=== PATIENT | female | born 1995 | race Caucasian/White ===

== ENCOUNTER 2017-03-19 18:42 | Emergency (ER) | payer BC, SELFPAY ==
[2017-03-19 19:06] VITALS: BP 139/94; PULSE 96; RESP 16; TEMP 36.8; O2SAT 96; BMI 21.2
[2017-03-19 19:38] LABS: Microscopic, Urine URINE MICROSCOPIC (MICROSCOPIC)
[2017-03-19 19:41] LABS: Basophils # 0.1 K/mm3 (0-0.2); Eosinophils # 0.5 K/mm3 (0.0-0.4); Eosinophils % 6.5 % (0.1-12.0); Lymphocytes # 2.7 K/mm3 (0.7-4.5); Lymphocytes % 34.9 K/mm3 (10-50); Mean Corpuscular HGB Conc 31.8 g/dL (31.8-35.4); Mean Corpuscular Hemoglobin 27.3 pg (27.0-31.2); Mean Corpuscular Volume 85.7 fl (81-99); Mean Platelet Volume 7.9 fl (7.4-10.4); Monocytes # 0.7 K/mm3 (0.1-1.0); Monocytes % 8.5 % (1.7-9.3); Neutrophils # 3.8 K/mm3 (1.8-7.8); Neutrophils % 49.1 % (37.0-80.0); Platelet Count 299 K/mm3 (142-424); Red Blood Count 5.13 M/mm3 (4.20-5.40); Red Cell Distribution Width 12.4 % (11.5-17.5); White Blood Count 7.8 K/mm3 (4.8-10.8)
[2017-03-19 19:47] LABS: Appearance,Urine SL CLOUDY (Clear); Bilirubin,Urine Negative (Negative); Blood, Urine Negative (Negative); Color,Urine YELLOW (Yellow); Glucose,Urine (UA) Negative (Negative); Ketones,Urine Negative (Negative); Leukocyte Esterase,Urine Negative (Negative); Nitrate,Urine Negative (Negative); Protein,Urine Negative (Negative); Urobilinogen,Urine 0.2 EU/dl (0.2)
--- NOTE | 2017-03-19 19:48 | CT_ITS ---
CT abdomen pelvis wo con CLINICAL INDICATION: Lower abdominal pain ITS.REASON: ABD PAIN ORDERING PHYSICIAN: Lilly Renee MD PATIENT AGE: 21 years COMPARISON: None TECHNIQUE: Axial images obtained with sagittal and coronal reformats. PROCEDURE: Oral Contrast: None IV Contrast: None . FINDINGS: Solid organs and bowel evaluation limited without IV and oral contrast. No acute finding in the lower chest. The liver, spleen, adrenal glands, pancreas, and kidneys is unremarkable unenhanced CT appearance. No intestinal obstruction or free air. The appendix is not well delineated however, no secondary signs of appendicitis. There is nonrotation of the bowel with the small bowel located mainly in the right side of the abdomen in the large bowel on the left. What appears to represent the appendix is located in the left upper quadrant mildly prominent but without stranding of the periappendiceal fat. Gas is present within the appendix as expected. There is a small amount fluid in the cul-de-sac nonspecific. No focal inflammatory change evident in the pelvis. No acute bony anomalies. IMPRESSION: 1. No acute finding. 2. Nonrotation of the bowel as described above. 3. There are multiple unopacified bowel loops present within the abdomen/pelvis which could obscure or mimic pathology. If symptoms persists, consider repeating exam with IV and oral contrast administration
[2017-03-19 19:50] LABS: Urine Pregnancy, HCG Qual. Negative (Negative)
[2017-03-19 19:52] LABS: Blood Urea Nitrogen 6 mg/dL (7-18); Creatinine Clearance Estimated 94 mg/ml (0-300); Creatinine,Serum 0.79 mg/dL (0.55-1.02); Estimated Glomerular Filt Rate > 60 ml/min (>60); GFR (African American) > 60 ML/MIN (>60)
[2017-03-19 20:02] LABS: RBC,Urine Occasional #/hpf (0-3); WBC,Urine 20-50 #/hpf (0-3)
[2017-03-19 20:03] LABS: Bacteria,Urine 1+ /lpf
[2017-03-19 20:33] LABS: Alanine Aminotransferase 24 U/L (12-78); Albumin Level 4.2 gm/dL (3.4-5.0); Albumin/Globulin Ratio 1.1 (1.1-1.8); Alkaline Phosphatase 85 U/L (46-116); Amylase 76 U/L (25-125); Anion Gap 11.1 mEq/L (5-15); Aspartate Amino Transferase 22 U/L (15-37); Bilirubin,Total 0.2 mg/dL (0.2-1.0); Blood Urea Nitrogen 7 mg/dL (7-18); Calcium 9.3 mg/dL (8.5-10.1); Carbon Dioxide 30 mmol/L (21.0-32.0); Chloride 103 mmol/L (98-107); Creatinine Clearance Estimated 91 mg/ml (0-300); Creatinine,Serum 0.81 mg/dL (0.55-1.02); Estimated Glomerular Filt Rate > 60 ml/min (>60); GFR (African American) > 60 ML/MIN (>60); Globulin 3.9 gm/dl (1.3-3.2); Glucose 102 mg/dL (74-106); Lipase 157 u/L (73-393); Potassium 4.1 mmoL/L (3.5-5.1); Sodium 140 mmol/L (136-145); Total Protein,Serum 8.1 gm/dL (6.4-8.2)
--- NOTE | 2017-03-19 20:59 | HMH.EDUROGF ---
ED Disposition Clinical Impression: Abdominal pain Qualifiers: Abdominal location: unspecified location Qualified Code(s): R10.9 - Unspecified abdominal pain UTI (urinary tract infection) Qualifiers: Urinary tract infection type: acute cystitis Hematuria presence: without hematuria Qualified Code(s): N30.00 - Acute cystitis without hematuria Disposition: Home, Self-Care Condition on Discharge: Good Instructions: DI for Acute Abdomen Additional Instructions: call pcp for culture results and follow up Prescriptions: Sulfamethoxazole/Trimethoprim [Bactrim DS tablet] 1 each PO BID #10 tab Referrals: Provider,Referral, [Primary Care Provider] - - Critical Care Critical Care Time: No Attestation: On 03/19/17, the high probability of a clinically significant, sudden or life threatening deterioration of the following system(s) required my full and direct attention, intervention and personal management. The time I documented below is in addition to time spent performing reported procedures but includes the following listed in this critical care notation. Medical Decision Making - Medical Records Medical records reviewed: Yes: I reviewed the patient's medical records. Vital Signs: 03/19/17 19:06 Temperature 98.3 F Temperature Source Oral Pulse Rate [Right Brachial] 96 H Respiratory Rate 16 Blood Pressure [Right Arm] 139/94 Blood Pressure Mean [Right Arm] 109 Blood Pressure Source [Right Arm] Automatic Cuff Blood Pressure Position [Right Arm] Sitting 02 Sat by Pulse Oximetry 96 Oxygen Delivery Method Room Air - Lab Data Lab results reviewed: Yes: I reviewed the patient's lab results. Lab Results 03/19/17 19:30: WBC 7.8, RBC 5.13, Hgb 14.0, Hct 44.0, MCV 85.7, MCH 27.3, MCHC 31.8, RDW 12.4, Plt Count 299, MPV 7.9, Neut % (Auto) 49.1, Lymph % (Auto) 34.9, [place] % (Auto) 8.5, Eos % (Auto) 6.5, Baso % (Auto) 1.0, Neut # (Auto) 3.8, Lymph # (Auto) 2.7, [place] # (Auto) 0.7, Eos # (Auto) 0.5 H, Baso # (Auto) 0.1 03/19/17 19:30: Sodium 140, Potassium 4.1, Chloride 103, Carbon Dioxide 30, Anion Gap 11.1, BUN 7, Creatinine 0.81, Estimated Creat Clear 91, Estimated GFR > 60, Est GFR ( Amer) > 60, Glucose 102, Calcium 9.3, Total Bilirubin 0.2, AST 22, ALT 24, Alkaline Phosphatase 85, Total Protein 8.1, Albumin 4.2, Globulin 3.9 H, Albumin/Globulin Ratio 1.1, Amylase 76, Lipase 157 03/19/17 19:30: BUN 6 L, Creatinine 0.79, Estimated Creat Clear 94, Estimated GFR > 60, Est GFR ( Amer) > 60 03/19/17 19:34: Urine Color Yellow, Urine Appearance Sl cloudy, Urine pH 7.0, Ur Specific [place] 1.020, Urine Protein Negative, Urine Glucose (UA) Negative, Urine Ketones Negative, Urine Blood Negative, Urine Nitrate Negative, Urine Bilirubin Negative, Urine Urobilinogen 0.2, Ur Leukocyte Esterase Negative, Urine RBC Occasional, Urine WBC 20-50, Ur Squamous Epith Cells 10-20, Urine Bacteria 1+ 03/19/17 19:34: Urine HCG, Qual Negative Result diagrams: 03/19/17 19:30 03/19/17 19:30 Orders (Tests/Meds): ED MEDICATIONS Generic Name Dose Route Start Last Admin Trade Name Freq PRN Reason Stop Dose Admin Sodium Chloride 10 ml 03/19/17 19:36 Saline Flush 10ml Syringe IV 04/18/17 19:35 NEEDED PRN Maintain IV Site ORDERS Category Date Time Status CT abdomen pelvis wo con Routine Cat Scan 03/19/17 19:[address] abdomen/pelvis request [CT Request abd/pelvis] Exams 03/19/17 19:13 Ordered Stat Urine Culture Stat Micro 03/19/17 19:34 Received - CT Data CT Scan: Abdomen, Pelvis Time Received: 21:[address] Reviewed: Yes: I have viewed the radiologist's interpretation Preliminary Findings: Normal/NAD - Francisco Inquiry Pt receiving controlled substance: No Female Urogenital HPI - General Chief complaint: Abdominal Pain Stated complaint: abd pain Time Seen by Provider: 03/19/17 20:15 Mode of Arrival: Ambulatory Source of Information: Patient, Significant Other, Medical Hardy
== END 2017-03-19 21:41 | disposition home or self-care (01) ==
PROVIDERS: Emergency Provider Emergency Medicine
DX: N30.00 Acute cystitis without hematuria (principal); J45.909 Unspecified asthma, uncomplicated
CPT/HCPCS: 74176; 80053; 81001; 81025; 82150; 82565; 83690; 84520; 85025; 87086; 99283

== ENCOUNTER → 2020-10-01 18:05 | Outpatient (CLI) | payer MEDICAID, SELFPAY ==
--- NOTE | 2020-10-01 18:25 | XR_ITS ---
PROCEDURE INFORMATION: Exam: XR Abdomen Exam date and time: 10/01/2020 6:25 PM Age: 25 years old Clinical indication: Patient HX: Constipation. Sitz marker study day #1; Additional info: Constipation , sitz marker study TECHNIQUE: Imaging protocol: XR of the abdomen. Views: Frontal supine view of the abdomen. 1 View. COMPARISON: ABDPELWO CT abdomen pelvis wo con 03/19/2017 7:56 PM FINDINGS: Gastrointestinal tract: A large amount of stool is noted throughout the colon. The bowel gas pattern is nonobstructive and nonspecific. Intraperitoneal space: Sitz markers overlie the left upper quadrant, left lower quadrant and mid abdomen. Bones/joints: Unremarkable. IMPRESSION: 1. A large amount of stool is noted throughout the colon. 2. Sitz markers overlie the left upper quadrant, left lower quadrant and mid abdomen. 3. The bowel gas pattern is nonobstructive and nonspecific.
== END ==
PROVIDERS: PCP Pediatrics; Visit Provider Surgery
DX: G89.29 Other chronic pain (principal); K59.09 Other constipation; Q43.3 Congenital malformations of intestinal fixation
CPT/HCPCS: 74018

== ENCOUNTER → 2020-10-05 17:12 | Outpatient (CLI) | payer MEDICAID, SELFPAY ==
--- NOTE | 2020-10-05 17:22 | XR_ITS ---
PROCEDURE INFORMATION: Exam: XR Abdomen Exam date and time: 10/05/2020 5:22 PM Age: 25 years old Clinical indication: Screening exam; Other: Sitz marker test; Additional info: Chronic abdominal pain. Constipation, sitz marker study day 5 TECHNIQUE: Imaging protocol: XR of the abdomen. Views: Frontal supine view of the abdomen. 1 View. COMPARISON: CR XR KUB 10/01/2020 6:29 PM FINDINGS: Gastrointestinal tract: A large amount of stool is noted throughout the transverse descending and rectosigmoid colon. The bowel gas pattern is nonobstructive and nonspecific. Bones/joints: Unremarkable. Other findings: No evidence of Sitz markers. IMPRESSION: 1. No evidence of Sitz markers. 2. A large amount of stool is noted throughout the transverse descending and rectosigmoid colon. 3. The bowel gas pattern is nonobstructive and nonspecific.
== END ==
PROVIDERS: PCP Pediatrics; Visit Provider Surgery
DX: R10.9 Unspecified abdominal pain (principal); G89.29 Other chronic pain; K59.09 Other constipation; Q43.3 Congenital malformations of intestinal fixation
CPT/HCPCS: 74018

== ENCOUNTER → 2021-03-28 15:33 | Outpatient (CLI) | payer MEDICAID, SELFPAY | PROVIDERS: Visit Provider Nurse Practitioner | DX: Z20.822 Contact with and (suspected) exposure to COVID-19 (principal) | CPT/HCPCS: C9803; U0003; U0005 ==

== ENCOUNTER 2021-04-05 11:39 | Emergency (ER) | payer MEDICAID, SELFPAY ==
[2021-04-05 12:30] VITALS: BP 124/89; PULSE 87; RESP 18; TEMP 36.9; O2SAT 99; BMI 25.6
--- NOTE | 2021-04-05 13:16 | HMH.EDUTC ---
[facility] [place] Disposition Clinical Impression: UTI (urinary tract infection) Qualifiers: Urinary tract infection type: site unspecified Hematuria presence: with hematuria Qualified Code(s): N39.0 - Urinary tract infection, site not specified Disposition: Home, Self-Care Condition on Discharge: Good Instructions: Trimethoprim/Sulfamethoxazole (Alternative Therapy), Urinary Tract Infection, DI for Urinary Tract Infection (UTI), Phenazopyridine Additional Instructions: *Increase fluids. Water not Soda or Tea *Start antibiotic immediately and be sure to take as ordered for the FULL length of time although you should start to see improvement over the next 48 hours *Pyridium as needed Remember this medication will turn your urine [place]. This is normal but it will stain what ever it gets on *You should not use Pyridium for more than 48 hours. If so , follow up with your primary physician to review urine culture and ensure that antibiotic is adequate for infection *Be SURE to follow up anytime for new or worsening symptoms with your family doctor. AND in 48 hours for urine culture results with your family doctor, if you do not have a doctor then you may call back to the [facility] for urine culture results and further treatment. We do recommend that you choose and establish care with a Primary Care Physician. AND follow up with them in 10-14 days to repeat UA to ensure infection is resolved and blood no longer present *Be sure to let your PCP know that we sent urine cultures from the [facility] so they can follow up to ensure that you area the on the correct antibiotic Call your doctor office and make appointment for 48 hours (2 days from today) to follow up and get the results of your urine culture and further treatment Prescriptions: Sulfamethoxazole/Trimethoprim [Bactrim DS tablet] 1 each PO BID 10 Days #20 tab Transmission Status: Pending to [id number] Phenazopyridine HCl [Pyridium 200mg Tablet] 200 pow PO TID #6 tab Transmission Status: Pending to [facility] Referrals: Stiven Calderon JR, MD [Primary Care Provider] - Forms: Work/School Release Time of Disposition: 13:23 Medical Decision Making - Francisco Inquiry Pt receiving controlled substance: No Francisco was queried for this patient: No Vital Signs: 04/05/21 12:30 Temperature 98.5 F Temperature Source Oral Pulse Rate [Right Brachial] 87 Respiratory Rate 18 Blood Pressure [Right Arm] 124/89 Blood Pressure Mean [Right Arm] 100 Blood Pressure Source [Right Arm] Automatic Cuff Blood Pressure Position [Right Arm] Sitting 02 Sat by Pulse Oximetry 99 Oxygen Delivery Method Room Air - Lab Data Lab results reviewed: Yes: I reviewed the patient's lab results. Medical Decision Narrative: denies states that she has the [employer] in [facility] [place] HPI - General Stated complaint: possible uti Time Seen by Provider: 04/05/21 13:16 Mode of Arrival: Ambulatory Source of Information: Patient Limitations: No Limitations Description of Symptoms (Recalled from Triage Doc. by RN): PATIENT C/O BURNING AND URGENCY WITH URINATION X 3 DAYS HEENT Symptoms (Recalled from RN notes): No Resp Symptoms (Recalled from RN notes): No Skin Symptoms (Recalled from RN notes): No MS Symptoms (Recalled from RN notes): No Functional Status (Recalled from RN notes): WNL - History of Present Illness Provider Complaint: Patient states that she has been having burning with urination for the last 3 days with feeling of urgency and frequency States that she feels like she may have a UTI so she came in to get checked - Related Data Previous Rx's Medication Instructions Recorded Phenazopyridine HCl [Pyridium 200 pow PO TID #6 tab 04/05/21 200mg Tablet] Sulfamethoxazole/Trimethoprim 1 each PO BID 10 Days #20 tab 04/05/21 [Bactrim DS tablet] Allergies Allergy/AdvReac Type Severity Reaction Status Date / Time No Known Allergies Allergy Verified 10/25/20 16:21 - Worker's
[2021-04-05 13:25] VITALS: BP 124/89; PULSE 87; RESP 18; TEMP 36.9; O2SAT 99
[2021-04-05 13:29] LABS: Apearance,Urine Clear (Clear); Bilirubin,Urine Negative (Negative); Blood, Urine 2+ (Negative); Color,Urine Orange (Yellow); Glucose,Urine (UA) Negative (Negative); Ketones,Urine Negative (Negative); Protein,Urine Negative (Negative); UTC Leukocyte Esterase,Urine Negative (Negative); UTC Nitrate,Urine Positive (Negative); Urobilinogen,Urine 1 EU/dl (0.2)
== END 2021-04-05 13:30 | disposition home or self-care (01) ==
PROVIDERS: Emergency Provider Nurse Practitioner; PCP Pediatrics
DX: N39.0 Urinary tract infection, site not specified (principal); J45.909 Unspecified asthma, uncomplicated
CPT/HCPCS: 81003; 87086; 87088; 87186; 99202; G0463

== ENCOUNTER 2021-04-22 12:07 | Emergency (ER) | payer MEDICAID, SELFPAY ==
[2021-04-22 14:02] VITALS: BP 143/93; PULSE 84; RESP 16; TEMP 36.9; O2SAT 100; BMI 24.7
--- NOTE | 2021-04-22 14:51 | HMH.EDUTC ---
[facility] [place] Disposition Clinical Impression: Viral syndrome, Bronchitis, Exposure to COVID-19 virus Pharyngitis Qualifiers: Pharyngitis/tonsillitis etiology: unspecified etiology Qualified Code(s): J02.9 - Acute pharyngitis, unspecified Disposition: Home, Self-Care Condition on Discharge: Good Instructions: DI for Pharyngitis/Tonsillopharyngitis -- Adult, DI for COVID-19 (Suspected or Confirmed ), Preventing the Spread of Coronavirus Discharge Instructions Additional Instructions: Drink plenty of fluids. Take tylenol or ibuprofen for pain or fever. Take the medications as directed. Follow up with your regular doctor. GO TO THE ER FOR ANY WORSENING SYMPTOMS Quarantine until you know the results of your covid-19 test. Notify your school or workplace of your results and follow their instructions regarding return to work/school. The cough medication (promethazine dm) will make you drowsy, so don't drive or operate heavy machinery after taking it. Prescriptions: Promethazine/Dextromethorphan [Promethazine-Dm Syrup] 5 ml PO Q6HP PRN #240 ml PRN Reason: Cough Transmission Status: Received by [facility] methylPREDNISolone [Medrol] 4 mg PO DIRECTED 6 Days #21 packet Transmission Status: Received by [facility] Azithromycin [Z-Elgin 250mg Tab*] 250 mg PO UD DOSE PK #6 tab Transmission Status: Received by [facility] Referrals: Stiven Calderon JR, MD [Primary Care Provider] - Forms: Work/School Release Time of Disposition: 15:14 Medical Decision Making - Medical Records Medical records reviewed: No: I reviewed the patient's medical records. - Francisco Inquiry Pt receiving controlled substance: No Vital Signs: 04/22/21 14:02 Temperature 98.4 F Temperature Source Oral Pulse Rate [Right Brachial] 84 Respiratory Rate 16 Blood Pressure [Right Arm] 143/93 H Blood Pressure Mean [Right Arm] 109 Blood Pressure Source [Right Arm] Automatic Cuff 02 Sat by Pulse Oximetry 100 Oxygen Delivery Method Room Air Orders (Tests/Meds): ORDERS Category Date Time Status Covid-19 Nasal PCR ([facility]) Routine Lab 04/22/21 14:03 Received Rapid Strep Scrn Group A [Strep Scrn Group A (Rapid)] Lab 04/22/21 15:09 Received Stat [facility] [place] HPI - General Stated complaint: stomach pain,nausea Time Seen by Provider: 04/22/21 14:51 Mode of Arrival: Ambulatory Source of Information: Patient Limitations: No Limitations Description of Symptoms (Recalled from Triage Doc. by RN): PT REPORTS LEFT SIDED ABDOMINAL PAIN, FEVER, BODY ACHES, CONTRERAS AND COUGH THAT STARTED YESTERDAY MORNING. HEENT Symptoms (Recalled from RN notes): No Resp Symptoms (Recalled from RN notes): Yes Skin Symptoms (Recalled from RN notes): No MS Symptoms (Recalled from RN notes): No Functional Status (Recalled from RN notes): N/A - History of Present Illness Provider Complaint: She states that for the past 2 days, she has had body aches, n/v/d, epigastric tenderness, low grade fever, chills and a cough. Her throat is also sore. She denies any known exposure to covid-19. But, she works at [employer] around lots of other people. She has been vaccinated against covid-19. - Related Data Previous Rx's Medication Instructions Recorded Phenazopyridine HCl [Pyridium 200 pow PO TID #6 tab 04/05/21 200mg Tablet] Sulfamethoxazole/Trimethoprim 1 each PO BID 10 Days #20 tab 04/05/21 [Bactrim DS tablet] Azithromycin [Z-Elgin 250mg Tab*] 250 mg PO UD DOSE PK #6 tab 04/22/21 Promethazine/Dextromethorphan 5 ml PO Q6HP PRN #240 ml 04/22/21 [Promethazine-Dm Syrup] methylPREDNISolone [Medrol] 4 mg PO DIRECTED 6 Days #21 04/22/21 packet Allergies Allergy/AdvReac Type Severity Reaction Status Date / Time No Known Allergies Allergy Verified 10/25/20 16:21 - Worker's Comp Is this a Worker's Comp case?: No [facility] History - Hepatitis A Screen Drug use history?: No High risk sexual behaviors?: No History of sexual
[2021-04-22 15:32] VITALS: BP 143/93; PULSE 84; RESP 16; TEMP 36.9; O2SAT 100
[2021-04-22 15:45] LABS: Strep Scrn Group A (Rapid) Negative (Negative)
== END 2021-04-22 15:37 | disposition home or self-care (01) ==
PROVIDERS: Emergency Provider Nurse Practitioner Family; PCP Pediatrics
DX: B34.9 Viral infection, unspecified (principal); Z20.822 Contact with and (suspected) exposure to COVID-19
CPT/HCPCS: 87430; 99202; C9803; G0463; U0003; U0005

== ENCOUNTER 2021-05-24 16:09 | Emergency (ER) | payer MEDICAID, SELFPAY ==
[2021-05-24 16:30] VITALS: BP 138/94; PULSE 102; RESP 20; TEMP 36.7; O2SAT 97; BMI 24.7
--- NOTE | 2021-05-24 16:30 | XR_ITS ---
PROCEDURE INFORMATION: Exam: XR Left Ankle Exam date and time: 05/24/2021 4:30 PM Age: 26 years old Clinical indication: Pain; Ankle; Left TECHNIQUE: Imaging protocol: XR Left ankle. Views: 3 or more views. COMPARISON: CR XR FOOT LT MIN 3V 05/24/2021 4:33 PM FINDINGS: Bones/joints: No acute fracture or dislocation. Ankle mortise is intact. Normal bone mineralization. Soft tissues: Normal. IMPRESSION: No acute findings.
--- NOTE | 2021-05-24 16:30 | XR_ITS ---
PROCEDURE INFORMATION: Exam: XR Left Foot Exam date and time: 05/24/2021 4:30 PM Age: 26 years old Clinical indication: Pain; Foot; Left TECHNIQUE: Imaging protocol: XR Left foot. Views: 3 or more views. COMPARISON: No relevant prior studies available. FINDINGS: Bones/joints: No acute fracture or dislocation. Joint spaces are preserved. Normal bone mineralization. Soft tissues: Normal. IMPRESSION: No acute findings.
[2021-05-24 17:06] VITALS: BP 138/94; PULSE 102; RESP 20; TEMP 36.7; O2SAT 97
--- NOTE | 2021-05-24 17:17 | HMH.EDUTC ---
[facility] [place] Disposition Clinical Impression: Ankle pain Qualifiers: Chronicity: unspecified Laterality: unspecified laterality Qualified Code(s): M25.579 - Pain in unspecified ankle and joints of unspecified foot Disposition: Home, Self-Care Condition on Discharge: Good Instructions: How To Perform RICE (Rest, Ice, Compress, Elevate), How to Apply an Klever Wrap Additional Instructions: *weight bearing as tolerated *RICE, Rest the extremity, Ice 15-20 minutes 3-4 times daily, Compress- wear the klever wrap as discussed as much as possible to help reduce swelling and pain, Elevate the extremity when at rest *Klever wrap is for support and help control swelling, use it except in the shower. Be sure that is not to tight but not to loose either *Elevate when resting *Ibuprofen as directed on package every 6-8 hours as needed for pain an inflammation. If need something more can take Tylenol in between doses of Ibuprofen to help Immediately follow up with your family doctor for new or worsening of symptoms, or no noticeable improvement over the next 3-5 days Referrals: Stiven Calderon JR, MD [Primary Care Provider] - As needed Time of Disposition: 17:25 Medical Decision Making - Frnacisco Inquiry Pt receiving controlled substance: No Francisco was queried for this patient: No Vital Signs: 05/24/21 16:30 05/24/21 17:06 Temperature 98.1 F 98.1 F Temperature Source Oral Pulse Rate 102 H Pulse Rate [Right Brachial] 102 H Respiratory Rate 20 20 Blood Pressure 138/94 H Blood Pressure [Right Arm] 138/94 H Blood Pressure Mean [Right Arm] 108 Blood Pressure Source [Right Arm] Automatic Cuff Blood Pressure Position [Right Arm] Sitting 02 Sat by Pulse Oximetry 97 Oxygen Delivery Method Room Air - Radiology Data #1 Image(s): Foot/Toes (left) Image Reviewed: Yes I have reviewed radiologist's interpretation IMPRESSION: No acute findings. #2 Image(s): Ankle Image Reviewed: Yes I have reviewed radiologist's interpretation IMPRESSION: No acute findings. [facility] [place] HPI - General Stated complaint: lt foot injury 05/22/21 Time Seen by Provider: 05/24/21 17:17 Mode of Arrival: Ambulatory Source of Information: Patient Limitations: No Limitations Description of Symptoms (Recalled from Triage Doc. by RN): PATIENT C/O LEFT FOOT AND ANKLE PAIN THAT STARTED 2 DAYS AGO. NO KNOWN INJURY HEENT Symptoms (Recalled from RN notes): No Resp Symptoms (Recalled from RN notes): No Skin Symptoms (Recalled from RN notes): No MS Symptoms (Recalled from RN notes): Yes Functional Status (Recalled from RN notes): WNL - History of Present Illness Provider Complaint: Patient states that she thinks her shoes is making her foot hurt but she was worried that she may have done something too it and wanted to get it xrayed States that she has been having pain in the top of her foot that shoots up to her left ankle when she walks Denies known injury - Related Data Allergies Allergy/AdvReac Type Severity Reaction Status Date / Time No Known Allergies Allergy Verified 10/25/20 16:21 - Worker's Comp Is this a Worker's Comp case?: No [facility] History - Hepatitis A Screen Drug use history?: No High risk sexual behaviors?: No History of sexually transmitted infection?: No Currently employed?: No Childcare worker?: No Do you have indoor plumbing?: Yes Do you have electricity?: Yes Attestation statement:: This patient has been screened for Hepatitis A risk factors. I have reviewed the patient's past medical history: Yes Medical History: Reports:: Asthma Denies:: Cancer, Diabetes Mellitus Type 1, Diabetes Mellitus Type 2, MRSA Laterality Cases: Bilateral: Tonsillectomy, Other Amputation: No Fractures: No Comment: Gastroschesis, wisdom teeth - Social History Smoking Status: Never smoker Alcohol Intake: never Alcohol Intake Frequency:: holidays/special occasions only Substance Use Type: denies use Occupational Status: employed Family H
== END 2021-05-24 18:01 | disposition home or self-care (01) ==
PROVIDERS: Emergency Provider Nurse Practitioner; PCP Pediatrics
DX: M25.572 Pain in left ankle and joints of left foot (principal)
CPT/HCPCS: 73610; 73630; 99212; G0463

== ENCOUNTER 2021-08-04 21:10 | Emergency (ER) | payer MEDICAID, SELFPAY ==
[2021-08-04 21:25] VITALS: BP 152/98; PULSE 101; RESP 18; TEMP 36.9; O2SAT 99; BMI 26.5
--- NOTE | 2021-08-04 21:42 | XR_ITS ---
PROCEDURE INFORMATION: Exam: XR Left Knee Exam date and time: 08/04/2021 9:48 PM Age: 26 years old Clinical indication: Injury or trauma; Fall; Blunt trauma; Knee; Left; Additional info: Knee pain TECHNIQUE: Imaging protocol: XR Left knee. Views: 3 views. COMPARISON: CR XR ANKLE LT MIN 3V 05/24/2021 4:34 PM FINDINGS: Bones/joints: No evidence of acute fracture or dislocation. No erosive disease. No significant degenerative change. No joint effusion. Soft tissues: Normal. IMPRESSION: Normal knee.
--- NOTE | 2021-08-04 21:42 | XR_ITS ---
PROCEDURE INFORMATION: Exam: XR Left Tibia and Fibula Exam date and time: 08/04/2021 9:49 PM Age: 26 years old Clinical indication: Injury or trauma; Fall; Blunt trauma; Lower leg; Left; Additional info: Knee pain TECHNIQUE: Imaging protocol: XR Left tibia and fibula. Views: 2 views. COMPARISON: CR XR ANKLE LT MIN 3V 05/24/2021 4:34 PM FINDINGS: Bones/joints: No evidence of acute fracture or dislocation. No erosive disease. No significant degenerative change. Soft tissues: Normal. IMPRESSION: No acute abnormality.
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
[2021-08-04 23:03] VITALS: BP 152/98; PULSE 101; RESP 18; TEMP 36.9
== END 2021-08-04 23:07 | disposition home or self-care (01) ==
PROVIDERS: Emergency Provider Emergency Medicine; PCP Pediatrics
DX: S83.92XA Sprain of unspecified site of left knee, initial encounter (principal); V28.2XXA Unspecified motorcycle rider injured in noncollision transport accident in nontraffic accident, initial encounter; Y92.096 Garden or yard of other non-institutional residence as the place of occurrence of the external cause; J45.909 Unspecified asthma, uncomplicated
CPT/HCPCS: 73562; 73590; 99283

== ENCOUNTER 2021-08-30 16:47 | Emergency (ER) | payer MEDICAID, SELFPAY ==
[2021-08-30 17:05] VITALS: BP 142/101; PULSE 110; RESP 17; TEMP 36.7; O2SAT 99; BMI 25.6
--- NOTE | 2021-08-30 17:18 | HMH.EDUTC ---
[facility] [place] Disposition Clinical Impression: Viral syndrome, Exposure to COVID-19 virus Disposition: Home, Self-Care Condition on Discharge: Good Instructions: DI for COVID-19 (Suspected or Confirmed ), Preventing the Spread of Coronavirus Discharge Instructions Additional Instructions: Drink plenty of fluids. Take ibuprofen for pain or fever. Take the medications as directed. Follow up with your regular doctor. GO TO THE ER FOR ANY WORSENING SYMPTOMS Quarantine until you know the results of your covid-19 test. Notify your school or workplace of your results and follow their instructions regarding return to work/school. The cough medication (promethazine dm) will make you drowsy, so don't drive or operate heavy machinery after taking it. Prescriptions: Ibuprofen [Ibuprofen 600mg Tablet] 600 mg PO Q6HP PRN #30 tab PRN Reason: Mild Pain [id number] Promethazine/Dextromethorphan [Promethazine-Dm Syrup] 5 ml PO Q6HP PRN #240 ml PRN Reason: Cough Transmission Status: Received by [id number] Ondansetron [Zofran 4mg ODT] 4 mg PO Q8HP PRN #20 tab PRN Reason: Nausea Transmission Status: Received by [id number] Referrals: Stiven Calderon JR, MD [Primary Care Provider] - Forms: Work/School Release Time of Disposition: 17:33 Medical Decision Making - Medical Records Medical records reviewed: No: I reviewed the patient's medical records. - Francisco Inquiry Pt receiving controlled substance: No Vital Signs: 08/30/21 17:05 08/30/21 17:40 Temperature 98.1 F 98.0 F Temperature Source Oral Pulse Rate 92 H Pulse Rate [Left Radial] 110 H Respiratory Rate 17 17 Blood Pressure 130/90 Blood Pressure [Right Arm] 142/101 H Blood Pressure Mean [Right Arm] 114 02 Sat by Pulse Oximetry 99 - Lab Data Lab results reviewed: Yes: I reviewed the patient's lab results. [facility] [place] HPI - General Stated complaint: allergies covid symptons Time Seen by Provider: 08/30/21 17:18 Description of Symptoms (Recalled from Triage Doc. by RN): patient comes in today with complaints of headache, bodyaches, patients sister has covid. HEENT Symptoms (Recalled from RN notes): Yes Resp Symptoms (Recalled from RN notes): Yes Skin Symptoms (Recalled from RN notes): No MS Symptoms (Recalled from RN notes): No Functional Status (Recalled from RN notes): wnl - History of Present Illness Provider Complaint: She states that since yesterday she has had body aches, chilling, fever up to 100.5, dry nonproductive cough, nausea, and she has felt bad. Her sister currently has covid-19. - Related Data Previous Rx's Medication Instructions Recorded Ibuprofen [Ibuprofen 600mg 600 mg PO Q6HP PRN #30 tab 08/30/21 Tablet] Ondansetron [Zofran 4mg ODT] 4 mg PO Q8HP PRN #20 tab 08/30/21 Promethazine/Dextromethorphan 5 ml PO Q6HP PRN #240 ml 08/30/21 [Promethazine-Dm Syrup] Allergies Allergy/AdvReac Type Severity Reaction Status Date / Time No Known Allergies Allergy Verified 10/25/20 16:21 - Worker's Comp Is this a Worker's Comp case?: No [facility] History - Hepatitis A Screen Attestation statement:: This patient has been screened for Hepatitis A risk factors. I have reviewed the patient's past medical history: Yes Medical History: Reports:: Asthma Denies:: Cancer, Diabetes Mellitus Type 1, Diabetes Mellitus Type 2, MRSA Laterality Cases: Bilateral: Tonsillectomy, Other Amputation: No Fractures: No Comment: Gastroschesis, wisdom teeth - Social History Smoking Status: Never smoker Alcohol Intake: never Alcohol Intake Frequency:: holidays/special occasions only Substance Use Type: denies use Occupational Status: employed Family Hx:: No significant family history ROS Obtained: Yes All systems reviewed & no additional complaints - Constitutional Constitutional: Reports as per HPI - Eyes Eyes: Denies eye discharge - ENT Ear
[2021-08-30 17:40] VITALS: BP 130/90; PULSE 92; RESP 17; TEMP 36.7
== END 2021-08-30 17:41 | disposition home or self-care (01) ==
LOC: ER 16:53 → UTC 16:56
PROVIDERS: Emergency Provider Nurse Practitioner Family; PCP Pediatrics
DX: R51.9 Headache, unspecified (principal); M79.10 Myalgia, unspecified site; R11.0 Nausea; Z20.822 Contact with and (suspected) exposure to COVID-19; J45.909 Unspecified asthma, uncomplicated; Q79.3 Gastroschisis; Z79.1 Long term (current) use of non-steroidal anti-inflammatories (NSAID)
CPT/HCPCS: 99213; C9803; G0463; U0003; U0005

== ENCOUNTER 2021-12-09 15:43 | Emergency (ER) | payer MEDICAID, SELFPAY ==
[2021-12-09 15:50] VITALS: BP 114/87; PULSE 97; RESP 19; TEMP 37; O2SAT 98; BMI 24.0
--- NOTE | 2021-12-09 16:08 | EXP.UTC ---
Discharge Plan Disposition Patient Disposition: Home, Self-Care Condition: Good Prescriptions Prescriptions: New iyxdttgyjmugtot-vyosqyfbl-RL [Bromfed DM] 2-30-10 mg/5 mL syrup 10 ml PO Q4H PRN (Reason: Cough) Qty: 240 0RF fluticasone propionate [Flonase Allergy Relief] 50 mcg/actuation spray,suspension 1 spray intranasal DAILY Qty: 16 0RF Rx Instructions: administer into each nostril Referrals Follow up/Referrals: Stiven Calderon JR, MD [Primary Care Provider] - See instructions Activity Restrictions/Add. Instructions Additional Instructions/Restrictions: *Monitor Temp, Over the counter Motrin or Tylenol as directed/as needed Tylenol every 4 hours and Motrin every 6 hours (as long as your family doctor has told you that you can take it) for fever or pain. and straight to ER if unable to lower temp less than 101.0 after medication given *Warm salt water gargles may help to soothe the throat *Throat Lozenges? *Warm fluids like tea with honey may help to soothe the throat? *Sleep elevated *Humidifier/Vaporizer *Flonase 2 sprays in each nostril daily but be aware that it may take 2-3 days before you notice improvement *Bromfed may cause drowsiness. Know how it effects you (your child) before driving, caring for small child, or sending your child to school. Not other antihistamines/allergy medications while taking bromfed Your throat swab was sent for culture. Those results are typically sent to your primary care. Be sure to follow up in 2-3 days with your family doctor/primary care physician if no improvement so they can review those result and treat if necessary. If you don?t have a primary care doctor, I recommend you get one but in the mean time, you will have to return to a walk in clinic Follow up IMMEDIATELY for new or worsening symptoms or no Noticeable improvement over the next 48-72 hours. 911 for difficulty breathing or swallowing You were tested for today for COVID19 your test result should be back in the next 24-48 hours, you may check your results on the [facility] My Health Portal Make sure to take your Vitamins Vit. C Vit D and Zinc if you can take them Clinical Impressions Clinical Impression: Viral upper respiratory tract infection with cough Stand Alone Forms Stand Alone Forms: Work/School Release Instructions Patient Instructions: Cough, DI for Viral Upper Respiratory Infection -- Adult Discharge ED Provider: Susan Samuel [facility] H[place] General Stated complaint: cougfh, sore throat, congestion Mode of Arrival: Ambulatory Source of Information: Patient Limitations: No Limitations Time Seen by Provider: 12/09/21 16:08 Description of Symptoms (Recalled from Triage Doc. by RN): PATIENT C/O SORE THROAT AND COUGH HEENT Symptoms (Recalled from RN notes): Yes Resp Symptoms (Recalled from RN notes): Yes Skin Symptoms (Recalled from RN notes): No MS Symptoms (Recalled from RN notes): No Functional Status (Recalled from RN notes): WNL History of Present Illness Provider Complaint: Patient states that she has been having sore throat, cough and nasal congestion States that in the morning she is able to cough up some mucous but mostly cough dry and scratchy Related Data Previous Rx's Medication Instructions Recorded dixafgowgxamnuj-gxrpuqsrwkesysz-IL 10 ml PO Q4H PRN Cough #240 mL 12/09/21 2 mg-30 mg-10 mg/5 mL oral syrup (Bromfed DM) fluticasone propionate 50 1 spray intranasal DAILY #16 grams 12/09/21 mcg/actuation nasal spray,suspension (Flonase Allergy Relief) Allergies Allergy/AdvReac Type Severity Reaction Status Date / Time No Known Allergies Allergy Verified 10/25/20 16:21 Worker's Comp Is this a Worker's Comp case?: No [facility] Medical History (Updated 12/09/21 @ 16:17 by Susan Samuel APRN) Anxiety Asthma Depression Urinary tract infection Surgical History (Updated 12/09/21 @ 16:06 by Nat Anderson RN) History of tonsillect
[2021-12-09 16:10] LABS: UTC Strep Screen (Rapid) Negative (Negative)
[2021-12-09 16:19] VITALS: BP 114/87; PULSE 97; RESP 19; TEMP 37; O2SAT 98
== END 2021-12-09 16:24 | disposition home or self-care (01) ==
PROVIDERS: Emergency Provider Nurse Practitioner; PCP Pediatrics
DX: J06.9 Acute upper respiratory infection, unspecified (principal); J02.9 Acute pharyngitis, unspecified; R05.9 Cough, unspecified; R09.81 Nasal congestion; J45.909 Unspecified asthma, uncomplicated; F32.A Depression, unspecified; F41.9 Anxiety disorder, unspecified; Z20.822 Contact with and (suspected) exposure to COVID-19; Z79.51 Long term (current) use of inhaled steroids
CPT/HCPCS: 87880; 99213; C9803; G0463; U0003; U0005

== ENCOUNTER 2021-12-14 12:57 | Emergency (ER) | payer MEDICAID, SELFPAY ==
--- NOTE | 2021-12-14 13:13 | HMH.EDURI ---
Discharge Plan Disposition Patient Disposition: Home, Self-Care Condition: Good Prescriptions Prescriptions: New prednisone 20 mg tablet 60 mg PO DAILY Qty: 15 0RF No Action hacporqtjydlzgc-qinhncfup-MY [Bromfed DM] 2-30-10 mg/5 mL syrup 10 ml PO Q4H PRN (Reason: Cough) Qty: 240 0RF fluticasone propionate [Flonase Allergy Relief] 50 mcg/actuation spray,suspension 1 spray intranasal DAILY Qty: 16 0RF Rx Instructions: administer into each nostril Referrals Follow up/Referrals: Stiven Calderon JR, MD [Primary Care Provider] - See instructions Activity Restrictions/Add. Instructions Additional Instructions/Restrictions: Follow-up with your primary care physician in about 3 to 4 days if you do not notice any improvement. Return to the emergency department immediately if you feel worse in any way. Continue taking all medications as prescribed. Clinical Impressions Clinical Impression: Viral upper respiratory tract infection with cough, UTI (urinary tract infection) Instructions Patient Instructions: Cough, DI for Acute Bronchitis Discharge ED Provider: Jorge Esparza URI/Sore Throat HPI General Chief Complaint: Upper Respiratory Infection Stated Complaint: cough Time Seen by Provider: 12/14/21 13:14 Mode of Arrival: Ambulatory Source of Information: Patient History of Present Illness HPI Narrative: The patient presents to the emergency department complaining of a nagging dry cough for the last 2 weeks. She is on Tessalon Perles. No she also had some cough syrup without relief. She denies fevers. She denies shortness of breath. She is not immunized against COVID or influenza. She does not smoke. She states that the cough is triggered by a tickling sensation in her lower neck anteriorly. Related Data Previous Rx's Medication Instructions Recorded mxdsojjkahyfpdp-haxpeawqjfncdlx-HD 10 ml PO Q4H PRN Cough #240 mL 12/09/21 2 mg-30 mg-10 mg/5 mL oral syrup (Bromfed DM) fluticasone propionate 50 1 spray intranasal DAILY #16 grams 12/09/21 mcg/actuation nasal spray,suspension (Flonase Allergy Relief) prednisone 20 mg tablet 60 mg PO DAILY #15 tabs 12/14/21 Allergies Allergy/AdvReac Type Severity Reaction Status Date / Time No Known Allergies Allergy Verified 10/25/20 16:[facility] Medical History Anxiety Asthma Depression Urinary tract infection Surgical History History of tonsillectomy History of wisdom tooth extraction Social History Smoking Status: Never smoker alcohol intake: never substance use type: denies use current occupational status: employed Travel in the last 8 weeks: None ROS Obtained: Yes All systems reviewed & no additional complaints except as documented Physical Exam General General appearance: alert Head Head exam: atraumatic Eye Eye exam: Present normal appearance ENT ENT exam: Present normal exam Neck Neck exam: Present normal inspection and full ROM; Absent tenderness or meningismus Chest Chest inspection: Present normal inspection and symmetric chest wall rise; Absent tenderness Respiratory Respiratory exam: Present normal lung sounds bilaterally; Absent respiratory distress or accessory muscle use Cardiovascular Cardiovascular exam: Present regular rate, normal rhythm and normal heart sounds Abdominal Exam Abdominal exam: Present soft and normal bowel sounds; Absent distention, tenderness, heel tap sign, Canas's sign, Rovsing's sign, tenderness at McBurney's Point or mass Extremities Exam Extremities exam: Present normal inspection and full ROM; Absent edema Back Exam Back exam: Present normal inspection; Absent CVA tenderness (R) or CVA tenderness (L) Neurological Exam Neurological exam: Present alert and oriented X3 Psychiatric Psychiatric exam: Presen
[2021-12-14 13:14] VITALS: BP 138/94; PULSE 89; RESP 17; TEMP 36.7; O2SAT 98; BMI 25.6
[2021-12-14 13:42] VITALS: BP 122/74; PULSE 82; RESP 98; TEMP 36.7; O2SAT 99
== END 2021-12-14 13:44 | disposition home or self-care (01) ==
PROVIDERS: Emergency Provider Emergency Medicine; PCP Pediatrics
DX: J06.9 Acute upper respiratory infection, unspecified (principal); N39.0 Urinary tract infection, site not specified; Z87.440 Personal history of urinary (tract) infections; F41.9 Anxiety disorder, unspecified; J45.909 Unspecified asthma, uncomplicated; F32.A Depression, unspecified
CPT/HCPCS: 99283

== ENCOUNTER 2022-03-19 08:07 | Emergency (ER) | payer MEDICAID, SELFPAY ==
[2022-03-19 08:08] VITALS: BP 140/91; PULSE 93; RESP 19; TEMP 37; O2SAT 98; BMI 26.5
[2022-03-19 08:28] LABS: UTC Strep Screen (Rapid) Negative (Negative)
[2022-03-19 08:29] LABS: UTC Influenza A Antigen Negative (Negative); UTC Influenza B Antigen Negative (Negative)
--- NOTE | 2022-03-19 08:39 | EXP.UTC ---
Discharge Plan Disposition Patient Disposition: Home, Self-Care Condition: Good Prescriptions Prescriptions: New amoxicillin [amoxicillin] 500 mg tablet 500 mg PO TID 10 Days Qty: 30 0RF benzonatate [benzonatate] 100 mg capsule 100 mg PO TIDP PRN (Reason: Cough) Qty: 30 0RF methylprednisolone 4 mg Tablets,Dose Pack 4 mg PO DIRECTED Qty: 21 0RF Referrals Follow up/Referrals: Provider,Referral, MD [Primary Care Provider] - See instructions Activity Restrictions/Add. Instructions Additional Instructions/Restrictions: Drink plenty of fluids. Take tylenol or ibuprofen for pain or fever. Take the medications as directed. Follow up with your regular doctor. GO TO THE ER FOR ANY WORSENING SYMPTOMS Clinical Impressions Clinical Impression: Acute viral syndrome, Pharyngitis Stand Alone Forms Stand Alone Forms: Work/School Release Instructions Patient Instructions: DI for Pharyngitis/Tonsillopharyngitis -- Adult, DI for Viral Syndrome Discharge ED Provider: Elier Kinney [facility] General Stated complaint: sore throat, cough, congestion, body aches Time Seen by Provider: 03/19/22 08:38 History of Present Illness Provider Complaint: She states that for the past 2 days she has had worsening sore throat, chills, cough, and sinus congestion. Related Data Previous Rx's Medication Instructions Recorded amoxicillin 500 mg tablet 500 mg PO TID 10 days #30 tabs 03/19/22 benzonatate 100 mg capsule 100 mg PO TIDP PRN Cough #30 caps 03/19/22 methylprednisolone 4 mg tablets in 4 mg PO DIRECTED #21 tabs 03/19/22 a dose pack Allergies Allergy/AdvReac Type Severity Reaction Status Date / Time No Known Allergies Allergy Verified 03/19/22 08:47 [facility] Disclaimer: The information contained in this section may have been updated after the patient was seen, as this information can be updated by other users. Medical History Anxiety Asthma Depression Urinary tract infection Surgical History History of tonsillectomy History of wisdom tooth extraction Social History Smoking Status: Never smoker alcohol intake: never substance use type: denies use current occupational status: employed Travel in the last 8 weeks: None ROS Obtained: Yes All systems reviewed & no additional complaints except as documented Constitutional Constitutional: Reports chills and Reports fever(s) Eyes Eyes: Denies eye discharge ENT Ears, Nose, Mouth, and Throat: Reports as per HPI Cardiovascular Cardiovascular: Denies chest pain Respiratory Respiratory: Denies chest congestion and Reports cough Gastrointestinal Gastrointestingal: Reports nausea; Denies abdominal pain, constipation, cramping, diarrhea or vomiting Musculoskeletal Musculoskeletal: Denies arthralgias Integumentary/Breasts Skin/Breast: Denies rash Neurologic Neurologic: Denies paresthesias Physical Exam General General appearance: alert and in no apparent distress Head Head exam: atraumatic, normocephalic and normal inspection Eye Eye exam: Present normal appearance, PERRL and EOMI ENT ENT exam: Present mucous membranes moist and normal external ear exam Expanded ENT Exam TM/Canal exam: Bilateral TM: erythema and bulging Nose exam: Absent sinus tenderness Mouth exam: Present normal external inspection; Absent drooling Teeth exam: Present normal inspection Throat exam: Present tonsillar erythema, tonsillomegaly and tonsillar exudate Neck Neck exam: Present normal inspection, full ROM and trachea midline; Absent tenderness, meningismus or lymphadenopathy Chest Chest inspection: Present normal inspection and symmetric chest wall rise; Absent tenderness Respiratory Respiratory exam: Present normal lung sounds bilaterally; Absent respiratory distress, wheezes or stridor
[2022-03-19 09:01] VITALS: BP 140/91; PULSE 93; RESP 19; TEMP 37; O2SAT 98
== END 2022-03-19 09:01 | disposition home or self-care (01) ==
PROVIDERS: Emergency Provider Nurse Practitioner Family
DX: J02.9 Acute pharyngitis, unspecified (principal); B34.9 Viral infection, unspecified
CPT/HCPCS: 87804; 87880; 99212; 99213; G0463

== ENCOUNTER → 2022-05-05 15:17 | Outpatient (CLI) | payer BC, MEDICAID, SELFPAY ==
[2022-05-05 16:37] LABS: Alanine Aminotransferase 19 U/L (12-78); Albumin Level 4.5 g/dl (3.5-5.0); Albumin/Globulin Ratio 1.6 (1.1-1.8); Alkaline Phosphatase 68 U/L (38-126); Anion Gap 6.3 mEq/L (5-15); Aspartate Amino Transferase 28 U/L (14-36); Bilirubin,Total 0.4 mg/dl (0.2-1.3); Blood Urea Nitrogen 8 mg/dl (7-17); Calcium 8.8 mg/dl (8.4-10.2); Carbon Dioxide 27 mmol/L (22.0-30.0); Chloride 110 mmol/L (98-107); Estimated Glomerular Filt Rate 100 ml/min (>60); GFR (African American) 121 ML/MIN (>60); Globulin 2.9 g/dL (1.3-3.2); Glucose 85 mg/dl (74-100); Potassium 4.3 mmoL/L (3.5-5.1); Sodium 139 mmol/L (136-145); Total Protein,Serum 7.4 g/dl (6.3-8.2)
[2022-05-05 16:42] LABS: Basophils # 0.1 K/mm3 (0-0.2); Basophils % 1.6 % (0.1-2.0); Eosinophils # 0.4 K/mm3 (0.0-0.4); Eosinophils % 8.3 % (0.1-12.0); Hematocrit 45.6 % (37.0-47.0); Hemoglobin 15.4 g/dL (12.2-16.2); Lymphocytes # 1.8 K/mm3 (0.7-4.5); Mean Corpuscular HGB Conc 33.8 g/dL (31.8-35.4); Mean Corpuscular Hemoglobin 29.7 pg (27.0-31.2); Mean Corpuscular Volume 87.8 fl (81-99); Mean Platelet Volume 8.1 fl (7.4-10.4); Monocytes # 0.5 K/mm3 (0.1-1.0); Monocytes % 9.4 % (1.7-9.3); Neutrophils # 2.2 K/mm3 (1.8-7.8); Neutrophils % 44.6 % (37.0-80.0); Platelet Count 314 K/mm3 (142-424); Red Cell Distribution Width 12.1 % (11.5-17.5)
[2022-05-05 16:52] LABS: 25-OH Vitamin D, Total 31.2 ng/mL (30-100)
[2022-05-05 17:07] LABS: Thyroid Stimulating Hormone 1.02 uIU/mL (0.465-4.68)
[2022-05-05 17:26] LABS: Vitamin B12 350 pg/mL (239-931)
== END ==
PROVIDERS: PCP Nurse Practitioner Family; Visit Provider Nurse Practitioner Family
DX: R20.2 Paresthesia of skin (principal)
CPT/HCPCS: 36415; 80053; 82306; 82607; 84443; 85025

== ENCOUNTER 2022-05-06 15:29 | Emergency (ER) | payer BC, MEDICAID, SELFPAY ==
[2022-05-06 15:45] VITALS: BP 136/85; PULSE 108; RESP 20; TEMP 37.3; O2SAT 100; BMI 27.1
--- NOTE | 2022-05-06 16:12 | EXP.UTC ---
Discharge Plan Disposition Patient Disposition: Home, Self-Care Prescriptions Prescriptions: New Paxlovid (EUA) 300 mg (150 mg x 2)-100 mg tablet See Rx Instructions .ROUTE .COMPLEX Qty: 30 0RF Rx Instructions: take TWO 150 mg tablets of nirmatrelvir with ONE 100 mg tablet of ritonavir twice daily for 5 days benzonatate [benzonatate] 100 mg capsule 100 mg PO TIDP PRN (Reason: Cough) Qty: 30 0RF methylprednisolone 4 mg Tablets,Dose Pack 4 mg PO DIRECTED Qty: 21 0RF ondansetron 4 mg Tablet,Disintegrating 4 mg PO Q8H PRN (Reason: Nausea) Qty: 12 0RF albuterol sulfate [Ventolin HFA] 90 mcg/actuation HFA aerosol inhaler 2 puff inhalation Q6H PRN (Reason: shortness of breath or wheezing) Qty: 6.7 2RF Referrals Follow up/Referrals: Sandra Narvaez APRN [Primary Care Provider] - See instructions Activity Restrictions/Add. Instructions Additional Instructions/Restrictions: Drink plenty of fluids. Take tylenol or ibuprofen for pain or fever. Take the medications as directed. Follow up with your regular doctor. GO TO THE ER FOR ANY WORSENING SYMPTOMS Since you have a history of asthma, I prescribed Paxlovid. This is an antiviral medication for covid-19. Don't start it until you make sure your covid-19 test is positive. Take the zofran for nausea. The steroids (methyprednisone) and tessalon perles (benzonate) are for your cough. Quarantine until you know the results of your covid-19 test. Notify your workplace of your results and follow their instructions regarding return to work/school. Clinical Impressions Clinical Impression: Acute viral syndrome, Exposure to 2019 novel coronavirus Stand Alone Forms Stand Alone Forms: Work/School Release Instructions Patient Instructions: DI for Viral Syndrome, Coronavirus Disease 2019, Preventing the Spread of Coronavirus Discharge Instructions Discharge ED Provider: Elier Kinney [facility] [place] HPI General Stated complaint: Dizziness,Cough,body aches Time Seen by Provider: 05/06/22 16:12 History of Present Illness Provider Complaint: She c/o dizziness, cough,body aches and malaise for the past 1 day. Related Data Previous Rx's Medication Instructions Recorded albuterol sulfate 90 mcg/actuation 2 puff inhalation Q6H PRN 05/06/22 aerosol inhaler (Ventolin HFA) shortness of breath or wheezing #6.7 grams benzonatate 100 mg capsule 100 mg PO TIDP PRN Cough #30 caps 05/06/22 methylprednisolone 4 mg tablets in 4 mg PO DIRECTED #21 tabs 05/06/22 a dose pack nirmatrelvir 300 mg (150 mg See Rx Instructions PO .COMPLEX 05/06/22 x2)-ritonavir 100 mg tablet,dose #30 tabs pack(EUA) (Paxlovid) ondansetron 4 mg disintegrating 4 mg PO Q8H PRN Nausea #12 tabs 05/06/22 tablet Allergies Allergy/AdvReac Type Severity Reaction Status Date / Time No Known Allergies Allergy Verified 05/06/22 16:39 [facility] Disclaimer: The information contained in this section may have been updated after the patient was seen, as this information can be updated by other users. Medical History Anxiety Asthma Depression Urinary tract infection Surgical History History of tonsillectomy History of wisdom tooth extraction Social History Smoking Status: Never smoker alcohol intake: never substance use type: denies use current occupational status: employed Travel in the last 8 weeks: None ROS Obtained: Yes All systems reviewed & no additional complaints except as documented Constitutional Constitutional: Reports chills and Reports fever(s) Eyes Eyes: Denies eye discharge ENT Ears, Nose, Mouth, and Throat: Reports as per HPI Cardiovascular Cardiovascular: Denies chest pain Respiratory Respiratory: Denies chest congestion and Reports cough Gastrointestinal Gastrointestinga
[2022-05-06 17:12] VITALS: BP 136/85; PULSE 108; RESP 20; TEMP 37.3; O2SAT 100
== END 2022-05-06 17:12 | disposition home or self-care (01) ==
PROVIDERS: Emergency Provider Nurse Practitioner Family; PCP Nurse Practitioner Family
DX: U07.1 COVID-19 (principal); R42 Dizziness and giddiness; R05.9 Cough, unspecified; R52 Pain, unspecified
CPT/HCPCS: 99212; 99213; C9803; G0463; U0003; U0005

== ENCOUNTER 2022-06-17 08:03 | Emergency (ER) | payer BC, MEDICAID, SELFPAY ==
[2022-06-17 08:10] VITALS: BP 135/86; PULSE 114; RESP 20; TEMP 37; O2SAT 96; BMI 26.9
--- NOTE | 2022-06-17 08:17 | EXP.UTC ---
Discharge Plan Disposition Patient Disposition: Home, Self-Care Condition: Good Prescriptions Prescriptions: New promethazine-DM 6.25-15 mg/5 mL Syrup 5 ml PO Q6H PRN (Reason: Cough) Qty: 240 0RF azithromycin [Zithromax] 250 mg tablet 250 mg PO UD DOSE PK Qty: 6 0RF Rx Instructions: Take two (2) tablets today, then one (1) tablet days #2 thru #5 methylprednisolone 4 mg Tablets,Dose Pack 4 mg PO DIRECTED Qty: 21 0RF Referrals Follow up/Referrals: Provider,Referral, MD [Primary Care Provider] - See instructions Activity Restrictions/Add. Instructions Additional Instructions/Restrictions: Drink plenty of fluids. Take tylenol or ibuprofen for pain or fever. Take the medications as directed. Follow up with your regular doctor. GO TO THE ER FOR ANY WORSENING SYMPTOMS The cough medication (promethazine dm) will make you drowsy, so don't drive or operate heavy machinery after taking it. Clinical Impressions Clinical Impression: Bronchitis Stand Alone Forms Stand Alone Forms: Work/School Release Instructions Patient Instructions: Acute Bronchitis, DI for Acute Bronchitis Discharge ED Provider: Eiler Kinney [facility] [place] HPI General Stated complaint: cough Mode of Arrival: Ambulatory Source of Information: Patient Limitations: No Limitations Time Seen by Provider: 06/17/22 08:17 Description of Symptoms (Recalled from Triage Doc. by RN): cough HEENT Symptoms (Recalled from RN notes): Yes Resp Symptoms (Recalled from RN notes): No Skin Symptoms (Recalled from RN notes): No MS Symptoms (Recalled from RN notes): No Functional Status (Recalled from RN notes): n/a History of Present Illness Provider Complaint: She reports that for the past 1 week she has had a productive cough with yellowish sputum. She denies fever/chills. She denies feeling bad. Related Data Previous Rx's Medication Instructions Recorded azithromycin 250 mg tablet 250 mg PO UD DOSE PK #6 tabs 06/17/22 (Zithromax) methylprednisolone 4 mg tablets in 4 mg PO DIRECTED #21 tabs 06/17/22 a dose pack promethazine-DM 6.25 mg-15 mg/5 mL 5 ml PO Q6H PRN Cough #240 mL 06/17/22 oral syrup Allergies Allergy/AdvReac Type Severity Reaction Status Date / Time No Known Allergies Allergy Verified 06/17/22 08:15 Worker's Comp Is this a Worker's Comp case?: No [facility] Disclaimer: The information contained in this section may have been updated after the patient was seen, as this information can be updated by other users. Medical History Anxiety Asthma Depression Urinary tract infection Surgical History History of tonsillectomy History of wisdom tooth extraction Social History Smoking Status: Never smoker alcohol intake: never substance use type: denies use current occupational status: employed Travel in the last 8 weeks: None ROS Obtained: Yes All systems reviewed & no additional complaints except as documented Constitutional Constitutional: Reports poor appetite Eyes Eyes: Reports system reviewed and no additional complaints, except as documented ENT Ears, Nose, Mouth, and Throat: Reports as per HPI Cardiovascular Cardiovascular: Reports system reviewed and no additional complaints, except as documented and Denies chest pain Respiratory Respiratory: Denies shortness of breath, Reports chest congestion, Reports cough, Denies stridor and Denies wheezing Gastrointestinal Gastrointestingal: Reports system reviewed and no additional complaints, except as documented; Denies abdominal pain, diarrhea or vomiting Musculoskeletal Musculoskeletal: Reports system reviewed and no additional complaints, except as documented and Denies arthralgias Integumentary/Breasts Skin/Breast: Reports system reviewed and no additional complaints, except as d
[2022-06-17 08:41] VITALS: BP 135/86; PULSE 114; RESP 20; TEMP 37; O2SAT 96
== END 2022-06-17 08:40 | disposition home or self-care (01) ==
PROVIDERS: Emergency Provider Nurse Practitioner Family
DX: J20.9 Acute bronchitis, unspecified (principal)
CPT/HCPCS: 99212; 99214; G0463

== ENCOUNTER 2023-09-06 12:20 | Inpatient (IN) | payer BC, SELFPAY ==
[2023-09-06] VITALS (25 sets, daily range): BP systolic 112–168; BP diastolic 78–120; PULSE 58–107; RESP 18–20; TEMP 36.8; O2SAT 97–100; BMI 27.4; BMI 28.0
--- NOTE | 2023-09-06 12:28 | CT_ITS ---
PROCEDURE INFORMATION: Exam: CT Abdomen And Pelvis With Contrast Exam date and time: 09/06/2023 1:59 PM Age: 28 years old Clinical indication: Abdominal pain; Additional info: Ruq/epigastric pain. Appy is in luq TECHNIQUE: Imaging protocol: Computed tomography of the abdomen and pelvis with contrast. Radiation optimization: All CT scans at this facility use at least one of these dose optimization techniques: automated exposure control; mA and/or kV adjustment per patient size (includes targeted exams where dose is matched to clinical indication); or iterative reconstruction. Contrast material: ISOVUE; Contrast volume: 75 ml; Contrast route: IV; [facility] abdomen pelvis wo con 03/19/2017 7:56 PM FINDINGS: Liver: Normal. No mass. Gallbladder and biliary ducts: Normal. No calcified stones. No ductal dilation. Pancreas: Normal. No ductal dilation. Spleen: Normal. No splenomegaly. Adrenal glands: Normal. No mass. Kidneys and ureters: Normal. No hydronephrosis. Stomach and bowel: . No obstruction. No mucosal thickening. Multiple fluid-filled loops of bowel in the pelvis Appendix: The appendix is not identified. Intraperitoneal space: Unremarkable. No free air. No significant fluid collection. Vasculature: Unremarkable. No abdominal aortic aneurysm. Lymph nodes: Unremarkable. No enlarged lymph nodes. Urinary bladder: Unremarkable as visualized. Reproductive: Unremarkable as visualized. Bones/joints: Unremarkable. No acute fracture. Soft tissues: Unremarkable. IMPRESSION: The appendix is not identified.. Multiple fluid-filled loops of bowel in the pelvis. If acute appendicitis is suspected clinically, recommend repeat study with oral contrast after oral contrast reaches the rectum. Additional IV contrast would also be helpful
--- NOTE | 2023-09-06 12:30 | ED_ITS ---
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 Onset was acute, occurring since 6 AM, epigastric and right upper quadrant, moderate to severe in intensity. Better with standing, worse with any other position. It is tender to palpation. No vomiting however there is associated nausea. No chest pain. No other acute complaints at this time. Related Data Previous Rx's Medication Instructions Recorded azithromycin 250 mg tablet 250 mg PO UD DOSE PK #6 tabs 06/17/22 (Zithromax) methylprednisolone 4 mg tablets in 4 mg PO DIRECTED #21 tabs 06/17/22 a dose pack promethazine-DM 6.25 mg-15 mg/5 mL 5 ml PO Q6H PRN Cough #240 mL 06/17/22 oral syrup Allergies Allergy/AdvReac Type Severity Reaction Status Date / Time No Known Allergies Allergy Verified 06/17/22 08:15 PFSH <Wojciech Martínez MD - Last Filed: 09/06/23 15:13> PFS Disclaimer: The information contained in this section may have been updated after the patient was seen, as this information can be updated by other users. Medical History Anxiety Asthma Depression Urinary tract infection Surgical History History of tonsillectomy History of wisdom tooth extraction Social History Smoking Status: Never smoker alcohol intake: never substance use type: denies use current occupational status: employed Travel in the last 8 weeks: None <Wojciech Martínez MD - Last Filed: 09/06/23 15:13> ROS Obtained: Yes Systems reviewed as appropriate & no additional complaints except as documented Physical Exam <Wojciech Martínez MD - Last Filed: 09/06/23 15:13> General General appearance: alert and in no apparent distress Head Head exam: atraumatic and normocephalic Eye Eye exam: Present PERRL and EOMI ENT ENT exam: Present mucous membranes moist Neck Neck exam: Present normal inspection Chest Chest inspection: Present normal inspection and symmetric chest wall rise Respiratory Respiratory exam: Present normal lung sounds bilaterally; Absent respiratory distress Cardiovascular Cardiovascular exam: Present regular rate and normal rhythm Abdominal Exam Abdominal exam: Present soft, tenderness (Right upper quadrant) and guarding (Voluntary); Absent rigidity Extremities Exam Extremities exam: Present normal inspection Neurological Exam Neurological exam: Present alert Psychiatric Psychiatric exam: Present normal affect Skin Skin exam: Present warm and dry Medical Decision Making <Wojciech Martínez MD - Last Filed: 09/06/23 15:13> [place] Inquiry Pt receiving controlled substance: No Vital Signs: 09/06/23 12:29 09/06/23 12:31 09/06/23 15:49 Temperature 98.2 F Temperature Source Oral Pulse Rate 82 65 Pulse Rate [Left Radial] 107 H Respiratory Rate 20 Blood Pressure 161/113 H 120/85 Blood Pressure [Right Arm] 156/102 H Blood Pressure Mean 128 Blood Pressure Mean [Right Arm] 120 02 Sat by Pulse Oximetry 100 100 100 Oxygen Delivery Method Room Air Room Air 09/06/23 15:50 09/06/23 16:00 09/06/23 16:10 Temperature Temperature Source Pulse Rate 67 73 76 Pulse Rate [Left Radial] Respiratory Rate Blood Pressure 119/83 130/94 H 133/103 H Blood Pressure [Right Arm] Blood Pressure Mean Blood Pressure Mean [Right Arm] 02 Sat by Pulse Oximetry 100 100 98 Oxygen Delivery Method Room Air Room Air Room Air 09/06/23 16:20 09/06/23 16:30 09/06/23 17:00 Temperature Temperature Source Pulse Rate 65 61 68 Pulse Rate [Left Radial] Respiratory Rate Blood Pressure 126/81 122/92 H 132/97 H Blood Pressure [Right Arm] Blood Pressure Mean 115 Blood Pressure Mean [Right Arm] 02 Sat by Pulse Oximetry 100 100 100 Oxygen Delivery Method Room Air Room Air 09/06/23 17:30 09/06/23 17:40 09/06/23 17:50 Temperature Temperature Source Pulse Rate 60 69 58 L Pulse Rate [Left Radial] Respiratory Rate Blood Pressure 113/84 113/78 112/78 Blood Pressure [Right Arm] Blood Pressure Mean Blood Pressure Mean [Right Arm] 02 Sat by Pulse Oximetry 100 99 100 Oxygen Delivery Method Room Air Room Air 09/06/23 17:52 09/06/23 18:00 09/06/23 18:10 Temperature Temperature Source Pulse Rate 69 59 L 60 Pulse Rate [Left Radial] Respiratory Rate Blood Pressure 112/78 114/80 121/90 Blood Pressure [Right Arm] Blood Pressure Mean 100 Blood Pressure Mean [Right Arm] 02 Sat by Pulse Oximetry 98 99 100 Oxygen Delivery Method Room Air Room Air Room Air 09/06/23 18:20 09/06/23 18:30 09/06/23 19:12 Temperature Temperature Source Pulse Rate 59 L 60 63 Pulse Rate [Left Radial] Respiratory Rate Blood Pressure 115/88 114/83 162/119 H Blood Pressure [Right Arm] Blood Pressure Mean 93 97 133 Blood Pressure Mean [Right Arm] 02 Sat by Pulse Oximetry 98 99 100 Oxygen Delivery Method Room Air Room Air 09/06/23 19:20 09/06/23 19:30 09/06/23 19:41 Temperature Temperature Source Pulse Rate 61 64 66 Pulse Rate [Left Radial] Respiratory Rate Blood Pressure 147/109 H 137/97 H 165/120 H Blood Pressure [Right Arm] Blood Pressure Mean 127 110 135 Blood Pressure Mean [Right Arm] 02 Sat by Pulse Oximetry 100 100 99 Oxygen Delivery Method 09/06/23 19:50 09/06/23 20:00 Temperature Temperature Source Pulse Rate 72 66 Pulse Rate [Left Radial] Respiratory Rate Blood Pressure 160/114 H 168/115 H Blood Pressure [Right Arm] Blood Pressure Mean 126 130 Blood Pressure Mean [Right Arm] 02 Sat by Pulse Oximetry 98 97 Oxygen Delivery Method Lab Data Lab Results 09/06/23 12:38: WBC 9.7, RBC 4.70, Hgb 13.9, Hct 42.7, MCV 91.0, MCH 29.6, MCHC 32.5, RDW 13.3, Plt Count 404, MPV 8.0, Neut % (Auto) 52.4, Lymph % (Auto) 37.4, [place] % (Auto) 6.4, Eos % (Auto) 2.7, Baso % (Auto) 1.2, Neut # (Auto) 5.1, Lymph # (Auto) 3.6, [place] # (Auto) 0.6, Eos # (Auto) 0.3, Baso # (Auto) 0.1, Sodium 141, Potassium 3.7, Chloride 105, Carbon Dioxide 26, Anion Gap 13.7, BUN 8, Creatinine 0.70, Estimated Creat Clear 129, Estimated GFR 100, Est GFR ( Amer) 121, Glucose 96, Lactate 1.4, Calcium 9.5, Total Bilirubin 0.4, AST 43 H, ALT 38, Alkaline Phosphatase 73, C-Reactive Protein 2.2, Total Protein 8.4 H, Albumin 4.8, Globulin 3.6 H, Albumin/Globulin Ratio 1.3, Lipase 149, Serum HCG, Qual Negative 09/06/23 15:03: Urine Color Yellow, Urine Appearance Clear, Urine pH 6.5, Ur Specific [place] 1.010, Urine Protein Negative, Urine Glucose (UA) Negative, Urine Ketones Negative, Urine Blood Negative, Urine Nitrate Negative, Urine Bilirubin Negative, Urine Urobilinogen 0.2, Ur Leukocyte Esterase Negative, Ur Squamous Epith Cells 3-5, Urine Bacteria Trace 09/06/23 12:38 09/06/23 12:38 Orders (Tests/Meds): ED MEDICATIONS Generic Name Dose Route Start Last Admin Trade Name Freq PRN Reason Stop Dose Admin Sodium Chloride 10 ml 09/06/23 14:04 09/06/23 14:06 Sodium Chloride 0.9% 10ml Syr (Rad Only) IV 10/06/23 14:03 10 ml NEEDED PRN Administration Maintain IV Site Sodium Chloride 10 ml 09/06/23 18:42 09/06/23 18:44 Sodium Chloride 0.9% 10ml Syr (Rad Only) IV 10/06/23 18:41 10 ml NEEDED PRN Administration Maintain IV Site Discontinued Medications Generic Name Dose Route Start Last Admin Trade Name Freq PRN Reason Stop Dose Admin Acetaminophen 1,000 mg 09/06/23 12:29 09/06/23 12:53 Acetaminophen 1,000mg/100ml Vial IV 09/06/23 12:30 1,000 mg ONCE ONE Administration Diatrizoate Meglum/Diatrizoate Sod 30 ml 09/06/23 16:41 09/06/23 16:50 Diatrizoate Annabel 66% & Diatrizoate Na 10% 30ml Udc PO 09/06/23 16:42 30 ml ONCE ONE Administration Dicyclomine HCl 20 mg 09/06/23 16:17 09/06/23 16:22 Dicyclomine 10mg Capsule PO 09/06/23 16:18 20 mg ONCE ONE Administration Lactated Ringer's 1,000 mls @ 999 mls/hr 09/06/23 12:30 09/06/23 12:54 Lactated Ringer's 1000 Ml Bag IV 09/06/23 13:30 999 mls/hr .Q1H1M ONE Administration Iopamidol 75 ml 09/06/23 14:04 09/06/23 14:05 Iopamidol-370 (76%);100ml Bottle IV 09/06/23 14:05 75 ml ONCE ONE Administration Iopamidol 75 ml 09/06/23 18:42 09/06/23 18:43 Iopamidol-370 (76%);100ml Bottle IV 09/06/23 18:43 75 ml ONCE ONE Administration Ketorolac Tromethamine 15 mg 09/06/23 16:17 09/06/23 16:23 Ketorolac 30mg/Ml Vial IV 09/06/23 16:18 15 mg ONCE ONE Administration Morphine Sulfate 4 mg 09/06/23 12:29 09/06/23 12:53 Morphine 4mg/Ml Syringe IV 09/06/23 12:30 4 mg ONCE ONE Administration Morphine Sulfate 4 mg 09/06/23 19:13 09/06/23 19:44 Morphine 4mg/Ml Syringe IV 09/06/23 19:14 4 mg ONCE ONE Administration Ondansetron HCl 4 mg 09/06/23 12:29 09/06/23 12:53 Ondansetron 4mg/2ml Vial IV 09/06/23 12:30 4 mg ONCE ONE Administration ORDERS Category Date Time Status CT abdomen pelvis w con Stat Cat Scan 09/06/23 12:[address] abdomen pelvis w con Stat Cat Scan 09/06/23 16:41 Completed General Surgery Consult [Consult to General Surgery] [ Cons 09/06/23 20:53 Ordered CONS] Stat POCUS Point of Care (ER Only) Stat Exams 09/06/23 12:30 Completed CBC w/Auto Diff [Complete Blood Count Auto Diff] Stat Lab 09/06/23 12:38 Completed CMP [Comprehensive Metabolic Panel] Stat Lab 09/06/23 12:38 Completed CRP [C-Reactive Protein] Stat Lab 09/06/23 12:38 Completed HCG Qualitative, Serum Stat Lab 09/06/23 12:38 Completed Lactic Acid Stat Lab 09/06/23 12:38 Completed Lipase Stat Lab 09/06/23 12:38 Completed UA [Urinalysis and Microscopic] Stat Lab 09/06/23 15:03 Completed EKG Request [ECG Request] Stat Y 09/06/23 12:30 Ordered ECG Data Tracing #1: Independently interpreted by me, rate is 83, rhythm is regular, axis is normal, no ST elevation in anatomical contiguous leads, QTc 382. Medical Decision Narrative: In summary patient is a 28-year-old female past medical history described above presents emergency department for evaluation of abdominal pain. Patient is hemodynamically stable nontoxic-appearing upon arrival, appearing in pain. Patient is tender at the right upper quadrant, has complicated anatomy. Differential diagnosis includes cholecystitis, pancreatitis, appendicitis, perforated hollow viscus, among others. Workup will be conducted with hematologic labs, CT of the abdomen pelvis IV contrast, urinalysis. Initial interventions include crystalloid bolus, Zofran, morphine, IV Tylenol. Initial workup reviewed by me, hematologic labs are nonactionable, no significant leukocytosis, no LELE or critical electrolyte abnormality. hCG negative. CT scan was being conducted and is pending at time of transition of care to the oncoming physician, Dr. Yen. <Ritu Yen, DO - Last Filed: 09/06/23 21:26> Vital Signs: 09/06/23 12:29 09/06/23 12:31 09/06/23 15:49 Temperature 98.2 F Temperature Source Oral Pulse Rate 82 65 Pulse Rate [Left Radial] 107 H Respiratory Rate 20 Blood Pressure 161/113 H 120/85 Blood Pressure [Right Arm] 156/102 H Blood Pressure Mean 128 Blood Pressure Mean [Right Arm] 120 02 Sat by Pulse Oximetry 100 100 100 Oxygen Delivery Method Room Air Room Air 09/06/23 15:50 09/06/23 16:00 09/06/23 16:10 Temperature Temperature Source Pulse Rate 67 73 76 Pulse Rate [Left Radial] Respiratory Rate Blood Pressure 119/83 130/94 H 133/103 H Blood Pressure [Right Arm] Blood Pressure Mean Blood Pressure Mean [Right Arm] 02 Sat by Pulse Oximetry 100 100 98 Oxygen Delivery Method Room Air Room Air Room Air 09/06/23 16:20 09/06/23 16:30 09/06/23 17:00 Temperature Temperature Source Pulse Rate 65 61 68 Pulse Rate [Left Radial] Respiratory Rate Blood Pressure 126/81 122/92 H 132/97 H Blood Pressure [Right Arm] Blood Pressure Mean 115 Blood Pressure Mean [Right Arm] 02 Sat by Pulse Oximetry 100 100 100 Oxygen Delivery Method Room Air Room Air 09/06/23 17:30 09/06/23 17:40 09/06/23 17:50 Temperature Temperature Source Pulse Rate 60 69 58 L Pulse Rate [Left Radial] Respiratory Rate Blood Pressure 113/84 113/78 112/78 Blood Pressure [Right Arm] Blood Pressure Mean Blood Pressure Mean [Right Arm] 02 Sat by Pulse Oximetry 100 99 100 Oxygen Delivery Method Room Air Room Air 09/06/23 17:52 09/06/23 18:00 09/06/23 18:10 Temperature Temperature Source Pulse Rate 69 59 L 60 Pulse Rate [Left Radial] Respiratory Rate Blood Pressure 112/78 114/80 121/90 Blood Pressure [Right Arm] Blood Pressure Mean 100 Blood Pressure Mean [Right Arm] 02 Sat by Pulse Oximetry 98 99 100 Oxygen Delivery Method Room Air Room Air Room Air 09/06/23 18:20 09/06/23 18:30 09/06/23 19:12 Temperature Temperature Source Pulse Rate 59 L 60 63 Pulse Rate [Left Radial] Respiratory Rate Blood Pressure 115/88 114/83 162/119 H Blood Pressure [Right Arm] Blood Pressure Mean 93 97 133 Blood Pressure Mean [Right Arm] 02 Sat by Pulse Oximetry 98 99 100 Oxygen Delivery Method Room Air Room Air 09/06/23 19:20 09/06/23 19:30 09/06/23 19:41 Temperature Temperature Source Pulse Rate 61 64 66 Pulse Rate [Left Radial] Respiratory Rate Blood Pressure 147/109 H 137/97 H 165/120 H Blood Pressure [Right Arm] Blood Pressure Mean 127 110 135 Blood Pressure Mean [Right Arm] 02 Sat by Pulse Oximetry 100 100 99 Oxygen Delivery Method 09/06/23 19:50 09/06/23 20:00 Temperature Temperature Source Pulse Rate 72 66 Pulse Rate [Left Radial] Respiratory Rate Blood Pressure 160/114 H 168/115 H Blood Pressure [Right Arm] Blood Pressure Mean 126 130 Blood Pressure Mean [Right Arm] 02 Sat by Pulse Oximetry 98 97 Oxygen Delivery Method Lab Data Lab Results 09/06/23 12:38: WBC 9.7, RBC 4.70, Hgb 13.9, Hct 42.7, MCV 91.0, MCH 29.6, MCHC 32.5, RDW 13.3, Plt Count 404, MPV 8.0, Neut % (Auto) 52.4, Lymph % (Auto) 37.4, [place] % (Auto) 6.4, Eos % (Auto) 2.7, Baso % (Auto) 1.2, Neut # (Auto) 5.1, Lymph # (Auto) 3.6, [place] # (Auto) 0.6, Eos # (Auto) 0.3, Baso # (Auto) 0.1, Sodium 141, Potassium 3.7, Chloride 105, Carbon Dioxide 26, Anion Gap 13.7, BUN 8, Creatinine 0.70, Estimated Creat Clear 129, Estimated GFR 100, Est GFR ( Amer) 121, Glucose 96, Lactate 1.4, Calcium 9.5, Total Bilirubin 0.4, AST 43 H, ALT 38, Alkaline Phosphatase 73, C-Reactive Protein 2.2, Total Protein 8.4 H, Albumin 4.8, Globulin 3.6 H, Albumin/Globulin Ratio 1.3, Lipase 149, Serum HCG, Qual Negative 09/06/23 15:03: Urine Color Yellow, Urine Appearance Clear, Urine pH 6.5, Ur Specific [place] 1.010, Urine Protein Negative, Urine Glucose (UA) Negative, Urine Ketones Negative, Urine Blood Negative, Urine Nitrate Negative, Urine Bilirubin Negative, Urine Urobilinogen 0.2, Ur Leukocyte Esterase Negative, Ur Squamous Epith Cells 3-5, Urine Bacteria Trace Orders (Tests/Meds): ED MEDICATIONS Generic Name Dose Route Start Last Admin Trade Name Freq PRN Reason Stop Dose Admin Sodium Chloride 10 ml 09/06/23 14:04 09/06/23 14:06 Sodium Chloride 0.9% 10ml Syr (Rad Only) IV 10/06/23 14:03 10 ml NEEDED PRN Administration Maintain IV Site Sodium Chloride 10 ml 09/06/23 18:42 09/06/23 18:44 Sodium Chloride 0.9% 10ml Syr (Rad Only) IV 10/06/23 18:41 10 ml NEEDED PRN Administration Maintain IV Site Discontinued Medications Generic Name Dose Route Start Last Admin Trade Name Ursula PRN Reason Stop Dose Admin Acetaminophen 1,000 mg 09/06/23 12:29 09/06/23 12:53 Acetaminophen 1,000mg/100ml Vial IV 09/06/23 12:30 1,000 mg ONCE ONE Administration Diatrizoate Meglum/Diatrizoate Sod 30 ml 09/06/23 16:41 09/06/23 16:50 Diatrizoate [place] 66% & Diatrizoate Na 10% 30ml Udc PO 09/06/23 16:42 30 ml ONCE ONE Administration Dicyclomine HCl 20 mg 09/06/23 16:17 09/06/23 16:22 Dicyclomine 10mg Capsule PO 09/06/23 16:18 20 mg ONCE ONE Administration Lactated Ringer's 1,000 mls @ 999 mls/hr 09/06/23 12:30 09/06/23 12:54 Lactated Ringer's 1000 Ml Bag IV 09/06/23 13:30 999 mls/hr .Q1H1M ONE Administration Iopamidol 75 ml 09/06/23 14:04 09/06/23 14:05 Iopamidol-370 (76%);100ml Bottle IV 09/06/23 14:05 75 ml ONCE ONE Administration Iopamidol 75 ml 09/06/23 18:42 09/06/23 18:43 Iopamidol-370 (76%);100ml Bottle IV 09/06/23 18:43 75 ml ONCE ONE Administration Ketorolac Tromethamine 15 mg 09/06/23 16:17 09/06/23 16:23 Ketorolac 30mg/Ml Vial IV 09/06/23 16:18 15 mg ONCE ONE Administration Morphine Sulfate 4 mg 09/06/23 12:29 09/06/23 12:53 Morphine 4mg/Ml Syringe IV 09/06/23 12:30 4 mg ONCE ONE Administration Morphine Sulfate 4 mg 09/06/23 19:13 09/06/23 19:44 Morphine 4mg/Ml Syringe IV 09/06/23 19:14 4 mg ONCE ONE Administration Ondansetron HCl 4 mg 09/06/23 12:29 09/06/23 12:53 Ondansetron 4mg/2ml Vial IV 09/06/23 12:30 4 mg ONCE ONE Administration ORDERS Category Date Time Status CT abdomen pelvis w con Stat Cat Scan 09/06/23 12:[address] abdomen pelvis w con Stat Cat Scan 09/06/23 16:41 Completed General Surgery Consult [Consult to General Surgery] [ Cons 09/06/23 20:53 Ordered CONS] Stat POCUS Point of Care (ER Only) Stat Exams 09/06/23 12:30 Completed CBC w/Auto Diff [Complete Blood Count Auto Diff] Stat Lab 09/06/23 12:38 Completed CMP [Comprehensive Metabolic Panel] Stat Lab 09/06/23 12:38 Completed CRP [C-Reactive Protein] Stat Lab 09/06/23 12:38 Completed HCG Qualitative, Serum Stat Lab 09/06/23 12:38 Completed Lactic Acid Stat Lab 09/06/23 12:38 Completed Lipase Stat Lab 09/06/23 12:38 Completed UA [Urinalysis and Microscopic] Stat Lab 09/06/23 15:03 Completed EKG Request [ECG Request] Stat Y 09/06/23 12:30 Ordered Medical Decision Narrative: In summary patient is a 28-year-old female past medical history described above presents emergency department for evaluation of abdominal pain. Patient is hemodynamically stable nontoxic-appearing upon arrival, appearing in pain. Patient is tender at the right upper quadrant, has complicated anatomy. Differential diagnosis includes cholecystitis, pancreatitis, appendicitis, perforated hollow viscus, among others. Workup will be conducted with hematologic labs, CT of the abdomen pelvis IV contrast, urinalysis. Initial interventions include crystalloid bolus, Zofran, morphine, IV Tylenol. Initial workup reviewed by me, hematologic labs are nonactionable, no significant leukocytosis, no LELE or critical electrolyte abnormality. hCG negative. CT scan was being conducted and is pending at time of transition of care to the oncoming physician, Dr. Yen. Farshad, DO: On my assessment of the patient, she continues to complain of significant pain. She was given oral Bentyl and IV Toradol presented medic improvement with no relief. She was then given a second dose of IV morphine with some relief. Initial CT scan did not visualize the appendix, however patient did not have any acute findings aside from some fluid-filled loops of small bowel. CRP was added given that we do not see the appendix, which is negative. Given this, doubt acute appendicitis. Radiology had advised CT scan with oral and IV contrast for persistent symptoms, and given that I was not able to get the patient's pain under control, I ordered this. CT scan demonstrated concerns for partial small bowel obstruction. They do note that her appendix is dilated, however this is unchanged from prior CT scan. She does not have any periappendiceal stranding, leukocytosis, or CRP to suggest issue. She has no left upper quadrant pain, which is where her appendix is located. Given concerns for partial small bowel obstruction, I had an interactive discussion with Dr. Leon with general surgery who advised that since it is a partial small bowel obstruction and can likely be managed medically with bowel rest and symptomatic management, he felt that the patient would not require transfer to higher level of care at this time. Given this, I had an interactive discussion with the hospitalist who admitted the patient for further evaluation and management. She was admitted in stable condition. Critical Care <Wojciech Martínez MD - Last Filed: 09/06/23 15:13> Critical Care Time Critical Care Time: No
--- NOTE | 2023-09-06 12:41 | ECG_ITS ---
APPROVED REPORT Exam: Resting ECG HR:83 bpm ECG Measurements Heart Rate 83 AXES VT 169 P 66 QRSd 85 QRS 56 QT 342 T 39 QTc 382 Conclusion SINUS RHYTHM POSSIBLE LEFT ATRIAL ENLARGEMENT [-0.1mV P-WAVE IN V1/V2] BORDERLINE ECG Electronically signed by : ELVER MCGOWAN, 09/06/2023 15:39:50
[2023-09-06] MEDS: ONDANSETRON 4MG/2ML VIAL 4 MG IV ×2 (12:53→23:10)
[2023-09-06] MEDS: ACETAMINOPHEN 1,000MG/100ML VIAL 1000 MG IV (12:53)
[2023-09-06] MEDS: MORPHINE 4MG/ML SYRINGE 4 MG IV ×3 (12:53→23:10)
[2023-09-06] MEDS: LACTATED RINGERS 1000ML 1,000 ML 999 ML IV (12:54)
[2023-09-06 13:09] LABS: Basophils # 0.1 K/mm3 (0-0.2); Basophils % 1.2 % (0.1-2.0); Chloride 105 mmol/L (98-107); Eosinophils # 0.3 K/mm3 (0.0-0.4); Eosinophils % 2.7 % (0.1-12.0); Hematocrit 42.7 % (37.0-47.0); Hemoglobin 13.9 g/dL (12.2-16.2); Lymphocytes # 3.6 K/mm3 (0.7-4.5); Lymphocytes % 37.4 % (10-50); Mean Corpuscular HGB Conc 32.5 g/dL (31.8-35.4); Mean Corpuscular Hemoglobin 29.6 pg (27.0-31.2); Monocytes # 0.6 K/mm3 (0.1-1.0); Monocytes % 6.4 % (1.7-9.3); Neutrophils # 5.1 K/mm3 (1.8-7.8); Neutrophils % 52.4 % (37.0-80.0); Platelet Count 404 K/mm3 (142-424); Potassium 3.7 mmoL/L (3.5-5.1); Red Cell Distribution Width 13.3 % (11.5-17.5); Sodium 141 mmol/L (136-145); White Blood Count 9.7 K/mm3 (4.8-10.8)
[2023-09-06 13:11] LABS: Blood Urea Nitrogen 8 mg/dl (7-17); Creatinine Clearance Estimated 129 mL/min (50-200); Estimated Glomerular Filt Rate 100 ml/min (>60); GFR (African American) 121 ML/MIN (>60)
[2023-09-06 13:12] LABS: Alanine Aminotransferase 38 U/L (12-78); Albumin Level 4.8 g/dl (3.5-5.0); Albumin/Globulin Ratio 1.3 (1.1-1.8); Alkaline Phosphatase 73 U/L (38-126); Anion Gap 13.7 mEq/L (5-15); Aspartate Amino Transferase 43 U/L (14-36); Bilirubin,Total 0.4 mg/dl (0.2-1.3); Calcium 9.5 mg/dl (8.4-10.2); Carbon Dioxide 26 mmol/L (22.0-30.0); Globulin 3.6 g/dL (1.3-3.2); Glucose 96 mg/dl (74-100); Lipase 149 U/L (23-300); Total Protein,Serum 8.4 g/dl (6.3-8.2)
[2023-09-06 13:13] LABS: Lactic Acid 1.4 mmol/L (0.7-2.1)
[2023-09-06 13:44] LABS: HCG Qualitative, Serum Negative (Negative)
[2023-09-06] MEDS: IOPAMIDOL-370 (76%);100ML BOTTLE 75 ML IV ×2 (14:05→18:43)
[2023-09-06] MEDS: SODIUM CHLORIDE 0.9% 10ML SYR (RAD ONLY) 10 ML IV ×2 (14:06→18:44)
[2023-09-06 15:07] LABS: Microscopic, Urine URINE MICROSCOPIC (MICROSCOPIC)
[2023-09-06 15:09] LABS: Appearance,Urine CLEAR (Clear); Bilirubin,Urine Negative (Negative); Blood, Urine Negative (Negative); Color,Urine YELLOW (Yellow); Glucose,Urine (UA) Negative (Negative); Ketones,Urine Negative (Negative); Leukocyte Esterase,Urine Negative (Negative); Nitrate,Urine Negative (Negative); PH,Urine 6.5 (5.0-8.5); Protein,Urine Negative (Negative); Urobilinogen,Urine 0.2 EU/dl (0.2)
--- NOTE | 2023-09-06 15:09 | PC.NURSE ---
pt is gone to ultrasound
[2023-09-06 15:32] LABS: Bacteria,Urine Trace /lpf
[2023-09-06 15:47] LABS: C-Reactive Protein 2.2 mg/L (0-4)
[2023-09-06] MEDS: DICYCLOMINE 10MG CAPSULE 20 MG PO (16:22)
[2023-09-06] MEDS: KETOROLAC 30MG/ML VIAL 15 MG IV (16:23)
--- NOTE | 2023-09-06 16:41 | CT_ITS ---
PROCEDURE INFORMATION: Exam: CT Abdomen And Pelvis With Contrast Exam date and time: 09/06/2023 6:37 PM Age: 28 years old Clinical indication: Abdominal pain; Additional info: Ruq abd pain, h/o gastroschesis/malrotation TECHNIQUE: Imaging protocol: Computed tomography of the abdomen and pelvis with contrast. Radiation optimization: All CT scans at this facility use at least one of these dose optimization techniques: automated exposure control; mA and/or kV adjustment per patient size (includes targeted exams where dose is matched to clinical indication); or iterative reconstruction. Contrast material: ISOVUE; Contrast volume: 75 ml; Contrast route: IV; COMPARISON: CT ABDOMEN PELVIS W CON 09/06/2023 1:59 PM FINDINGS: Liver: Normal. No mass. Gallbladder and biliary ducts: Normal. No calcified stones. No ductal dilation. Pancreas: Normal. No ductal dilation. Spleen: Normal. No splenomegaly. Adrenal glands: Normal. No mass. Kidneys and ureters: Normal. No hydronephrosis. Stomach and bowel: Dilated loops of small bowel in the lower right side of the abdomen concerning for partial small bowel obstruction. Appendix: No change in the appearance of the appendix which is in the left upper quadrant 7.5 mm. This could indicate acute appendicitis. No surrounding inflammatory changes Intraperitoneal space: Unremarkable. No free air. No significant fluid collection. Vasculature: Unremarkable. No abdominal aortic aneurysm. Lymph nodes: Unremarkable. No enlarged lymph nodes. Urinary bladder: Unremarkable as visualized. Reproductive: Unremarkable as visualized. Bones/joints: Unremarkable. No acute fracture. Soft tissues: Unremarkable. IMPRESSION: 1. No change in the appearance of the appendix which is in the left upper quadrant 7.5 mm. This could indicate acute appendicitis. No surrounding inflammatory changes 2. Dilated loops of small bowel in the lower right side of the abdomen concerning for partial small bowel obstruction
[2023-09-06] MEDS: DIATRIZOATE MEG 66% & DIATRIZOATE NA 10% 30ML UDC 30 ML PO (16:50)
--- NOTE | 2023-09-06 17:06 | PC.NURSE ---
pt finished with oral contrast
--- NOTE | 2023-09-06 21:22 | PC.NURSE ---
report called to Sherry ADAMS
--- NOTE | 2023-09-06 21:39 | PC.NURSE ---
Patient arrived to floor via wheelchair from ED at 21:33.
--- NOTE | 2023-09-06 22:02 | EXP.HP ---
History of Present Illness *Admission Date: 09/06/23 *Reason for visit:: abdominal pain since the a.m. with findings of small bowel obstruction *History of present illness: Abdominal pain began this morning, patient noted that she had a history of rotation of the bowel. Congenital. That for the last 3 years she has been doing very well with maybe some lower abdominal pain at times. But this was new and of sudden onset [facility] Disclaimer: The information contained in this section may have been updated after the patient was seen, as this information can be updated by other users. Medical History (Updated 09/07/23 @ 04:38 by Sherry Trimble RN) Congenital gastroschisis Depression Anxiety Urinary tract infection Asthma Surgical History (Updated 09/06/23 @ 22:22 by Elia Berrios APRN) History of wisdom tooth extraction History of tonsillectomy Social History (Updated 09/06/23 @ 22:14 by Mahsa Maradiaga RN) Smoking Status: Never smoker alcohol intake: never substance use type: denies use current occupational status: employed Travel in the last 8 weeks: None Review of Systems Review of Systems Review of systems:: pertinent systems reviewed and negative unless documented below Review of systems (narrative): Patient is a healthy looking female that works at [employer]. She notes her only problem recently has been seasonal allergies, that she takes Rosangela for. She did have multiple allergies and was on allergy shots in the past. States she used to have pain up until about 3 years ago in her abdomen on a regular basis this had then since improved. She is reported no significant changes in her life starting or stopping any meds travel or camping that would have exposed her to any poor water sources. Constitutional Constitutional: Reports poor appetite Eyes Eyes: Reports system reviewed and no additional complaints, except as documented ENT Ears, Nose, Mouth, and Throat: Reports system reviewed and no additional complaints, except as documented *Cardiovascular Cardiovascular: Reports system reviewed and no additional complaints, except as documented *Respiratory Respiratory: Reports system reviewed and no additional complaints, except as documented *Gastrointestinal Gastrointestinal: Reports as per HPI, Reports abdominal pain and Reports other Comments: Presently position of comfort is when she is sitting up or standing. Congenital gastrochisis, corrected as an infant. With a history of abdominal pain on a regular basis till approximately 3 years ago she says she has not had much pain since then. *Genitourinary Genitourinary: Reports system reviewed and no additional complaints, except as documented *Musculoskeletal Musculoskeletal: Reports system reviewed and no additional complaints, except as documented Integumentary/Breasts Skin/Breast: Reports system reviewed and no additional complaints, except as documented *Neurologic Neurologic: Reports system reviewed and no additional complaints, except as documented Psychiatric Psychiatric: Reports system reviewed and no additional complaints, except as documented Comments: Patient is stoic and a very good historian Endocrine Endocrine: Reports system reviewed and no additional complaints, except as documented Hematologic/Lymphatic Hematologic/Lymphatic: Reports system reviewed and no additional complaints, except as documented Allergic/Immunologic Allergic/Immunologic: Reports as per HPI and Reports seasonal rhinorrhea Meds Home Medications and Allergies Home Medications Medication Instructions Recorded Confirmed Type No Known Home Medications 09/07/23 09/07/23 History New Prescriptions to Start Prescriptions: Allergies Allergy/AdvReac Type Severity Reaction Status Date / Time No Known Allergies Allergy Verified 06/17/22 08:15 Exam Data for Last 24 hours Vital signs and Labs for Last 24 Hours: Temp Pulse Resp BP Pulse Ox O2 Del Method 98.2 F 71 18 131/95 H 100 Room Air 09/06/23 21:25 09/06/23 21:25 09/06/23 21:25 09/06/23 21:25 09/06/23 21:12 09/06/23 21:25 Laboratory Results - last 24 hr 09/06/23 12:38: WBC 9.7, RBC 4.70, Hgb 13.9, Hct 42.7, MCV 91.0, MCH 29.6, MCHC 32.5, RDW 13.3, Plt Count 404, MPV 8.0, Neut % (Auto) 52.4, Lymph % (Auto) 37.4, [place] % (Auto) 6.4, Eos % (Auto) 2.7, Baso % (Auto) 1.2, Neut # (Auto) 5.1, Lymph # (Auto) 3.6, [place] # (Auto) 0.6, Eos # (Auto) 0.3, Baso # (Auto) 0.1, Sodium 141, Potassium 3.7, Chloride 105, Carbon Dioxide 26, Anion Gap 13.7, BUN 8, Creatinine 0.70, Estimated Creat Clear 129, Estimated GFR 100, Est GFR ( Amer) 121, Glucose 96, Lactate 1.4, Calcium 9.5, Total Bilirubin 0.4, AST 43 H, ALT 38, Alkaline Phosphatase 73, C-Reactive Protein 2.2, Total Protein 8.4 H, Albumin 4.8, Globulin 3.6 H, Albumin/Globulin Ratio 1.3, Lipase 149, Serum HCG, Qual Negative 09/06/23 15:03: Urine Color Yellow, Urine Appearance Clear, Urine pH 6.5, Ur Specific [place] 1.010, Urine Protein Negative, Urine Glucose (UA) Negative, Urine Ketones Negative, Urine Blood Negative, Urine Nitrate Negative, Urine Bilirubin Negative, Urine Urobilinogen 0.2, Ur Leukocyte Esterase Negative, Ur Squamous Epith Cells 3-5, Urine Bacteria Trace I & O for Last 24 hours: Intake & Output 09/03/23 09/04/23 09/05/23 09/06/23 23:59 23:59 23:59 23:59 Weight 69.626 kg Radiology Reports for the Last 24 Hours: Patient has a slightly enlarged appendix without stranding. The appendix is located on the left and normal compared to last CT scan. Small bowel is malrotated appears to be a bowel blockage on the lower left. Narrative: On exam of the patient pain noted midepigastric and mid lower abdominal area greater then the lower left and right on gentle palpation Constitutional Constitutional: no acute distress Comments: Patient states she is she is in pain but she looks comfortable sitting up able to move without any distress *Routine HEENT Exam Head: Present normocephalic and atraumatic Eye: Present EOMI and PERRL ENT: Present mucous membranes moist *Routine Neck Exam Neck: Present supple and full ROM Routine Chest/Breast/Axilla Exam Comments: Examination of the chest finds no deficits *Routine Respiratory Exam Respiratory: Present normal respiratory effort and able to speak in complete sentences Comments: Lungs clear in all luo *Routine Cardiovascular Exam Cardiovascular: Present RRR, Normal S1 and Normal S2 *Routine Abdominal Exam Abdominal: Present soft and guarding Comments: Examination of the abdomen it is soft but with gentle palpation tenderness in the epigastric region, and across the entire lower abdominal field greater midline. Very hyperactive bowel sounds *Routine Rectal Exam Rectal:: deferred *Routine Genitalia Exam Genitalia:: deferred *Routine Extremities Exam Comments: Patient is able to sit up and move and stand without any difficulty Routine Back/Spine/Pelvis Exam Back/Spine: Present full ROM Comments: No deficits or injury found *Routine Skin Exam Skin: Present intact Comments: No rashes or abnormal coloring found *Routine Neurological Exam Neurological: Present alert, oriented X3, CN II-XII intact and normal speech Routine Psychiatric Exam Psychiatric: Present normal affect and normal thought process Comments: A friendly polite lady. She answers all questions well and is a good historian H&P: Result Impressions Holistic abdominal pain on light palpation with hyperactive bowel sounds. Concur with partial bowel obstruction reason unknown. Imaging and Cardiology CT scan - abdomen: Additional comments: Ct abd. small bowel obstruction Assessment and Plan *Assessment and plan (1) Partial obstruction of small intestine: Start date: 09/06/23 Start time: 08:00 Problem Comment: Onset of abdominal pain Status: Acute Category: Medical Code(s): K56.600 - Partial intestinal obstruction, unspecified as to cause (2) History of gastroschisis: Start date: 95 Start time: 08:00 Problem Comment: Patient born with congenital bowel issue Status: Resolved Category: Surgical Code(s): Z87.761 - Personal history of (corrected) gastroschisis Plan: Patient had surgical correction of bowel issue (3) Abdominal pain: Start date: 09/06/23 Start time: 08:00 Status: Acute Qualifiers: Abdominal location: generalized Qualified Code(s): R10.84 - Generalized abdominal pain Category: Medical Code(s): R10.9 - Unspecified abdominal pain Plan: After arrival to the floor patient was having pain, have added morphine for as needed for pain acute to, also noting patient has some nausea with morphine Zofran is ordered. Plan 1. Partial bowel obstruction with abdominal pain, have talked with the ER physician about the patient noting that general surgery has been contacted already. Plan to admit to the floor with bowel rest, hydration and pain control. With anticipated outcome that this will clear itself. Presently labs and vital signs are in acceptable limits and not aggressive treatment is indicated. Reviewing of personal and medical history has found no reason for this sudden onset. Dr Leon contacted by ER physician 2. HX of Gastroschisis , at that was surgically corrected. 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 I have evaluated CT scan myself and reviewed all labs and written results. CT shows what appears to be bowel obstruction with dilation of small bowel loops. Chemistry panel normal with stable kidney function, BUN 8, creatinine 0.7. Electrolytes normal potassium 3.7, sodium 141. White cell count normal at 9.7. No signs of anemia. LFTs unremarkable. Dr. Felder, was updated by phone about this patient for plan pain control and treatment. 3. Abdominal pain, after arriving to the floor patient was in considerable amount of abdominal pain, morphine 4 ordered every 2 as needed. Rounded on patient after nurse practitioner. Personally examined and interviewed patient. Agree with exam findings and care plan as documented.
[2023-09-06] MEDS: LACTATED RINGERS 1000ML 1,000 ML 50 ML IV (23:09)
[2023-09-07 04:00] VITALS: BP 111/52; PULSE 72; RESP 16; TEMP 36.9; O2SAT 98; BMI 28.2
--- NOTE | 2023-09-07 05:32 | PC.NURSE ---
Since arriving to the floor the patient has had a good shift. She did have pain when she first came up from the ER but has since been controlled. See MAR. has had no other complaints. Patient has family at bedside.
--- NOTE | 2023-09-07 06:16 | EXP.SURG.CON ---
History of Present Illness *Admission Date: 09/06/23 *Reason for visit:: Small bowel obstruction *History of present illness: Patient is a 28-year-old female with history of apparent congenital gastroschisis. Presented to the emergency department in the afternoon of 09/06/2023 with relatively acute onset of epigastric pain and occurring that morning approximately 6 AM located in the epigastrium and right upper quadrant. Evaluation in the emergency department revealed tenderness in the right upper quadrant. Laboratory evaluation was unremarkable. She underwent CT scan with IV contrast. Appendix was not identified. There were multiple fluid-filled loops of bowel in the pelvis. Radiology recommended CT scan with IV and oral contrast for her persistent symptoms and this was performed. Appendix was seen and measured 7.5 mm. Radiology reports this could indicate acute appendicitis. No surrounding inflammatory changes. Dilated loops of small bowel in the lower right side of the abdomen concerning for partial small bowel obstruction. Surgery was contacted regarding patient's history and findings of possible low-grade partial obstruction. Plan was for inpatient admission for management of partial obstruction. Her last bowel movement was overnight after admission. Minimal nausea, especially with significant pain yesterday. [facility] Disclaimer: The information contained in this section may have been updated after the patient was seen, as this information can be updated by other users. Medical History (Updated 09/07/23 @ 04:38 by Sherry Trimble RN) Congenital gastroschisis Depression Anxiety Urinary tract infection Asthma Surgical History (Updated 09/06/23 @ 22:22 by Elia Berrios APRN) History of wisdom tooth extraction History of tonsillectomy Social History (Updated 09/06/23 @ 22:14 by Mahsa Maradiaga RN) Smoking Status: Never smoker alcohol intake: never substance use type: denies use current occupational status: employed Travel in the last 8 weeks: None Review of Systems *Neurologic Neurologic: Reports system reviewed and no additional complaints, except as documented Meds Home Medications and Allergies New Prescriptions to Start Prescriptions: Allergies Allergy/AdvReac Type Severity Reaction Status Date / Time No Known Allergies Allergy Verified 06/17/22 08:15 Exam (Inpt) Vital signs and Labs for Last 24 Hours: Temp Pulse Resp BP Pulse Ox O2 Del Method 98.5 F 72 16 111/52 L 98 Room Air 09/07/23 04:00 09/07/23 04:00 09/07/23 04:00 09/07/23 04:00 09/07/23 04:00 09/07/23 05:00 Laboratory Results - last 24 hr 09/06/23 12:38: WBC 9.7, RBC 4.70, Hgb 13.9, Hct 42.7, MCV 91.0, MCH 29.6, MCHC 32.5, RDW 13.3, Plt Count 404, MPV 8.0, Neut % (Auto) 52.4, Lymph % (Auto) 37.4, [place] % (Auto) 6.4, Eos % (Auto) 2.7, Baso % (Auto) 1.2, Neut # (Auto) 5.1, Lymph # (Auto) 3.6, [place] # (Auto) 0.6, Eos # (Auto) 0.3, Baso # (Auto) 0.1, Sodium 141, Potassium 3.7, Chloride 105, Carbon Dioxide 26, Anion Gap 13.7, BUN 8, Creatinine 0.70, Estimated Creat Clear 129, Estimated GFR 100, Est GFR ( Amer) 121, Glucose 96, Lactate 1.4, Calcium 9.5, Total Bilirubin 0.4, AST 43 H, ALT 38, Alkaline Phosphatase 73, C-Reactive Protein 2.2, Total Protein 8.4 H, Albumin 4.8, Globulin 3.6 H, Albumin/Globulin Ratio 1.3, Lipase 149, Serum HCG, Qual Negative 09/06/23 15:03: Urine Color Yellow, Urine Appearance Clear, Urine pH 6.5, Ur Specific [place] 1.010, Urine Protein Negative, Urine Glucose (UA) Negative, Urine Ketones Negative, Urine Blood Negative, Urine Nitrate Negative, Urine Bilirubin Negative, Urine Urobilinogen 0.2, Ur Leukocyte Esterase Negative, Ur Squamous Epith Cells 3-5, Urine Bacteria Trace I & O for Labs for Last 24 Hours: Intake & Output 09/04/23 09/05/23 09/06/23 09/07/23 11:59 11:59 11:59 11:59 Intake Total 0 / 0 Output Total 0 / 0 Balance 0 / 0 Weight 153 lb 8 oz Constitutional: no acute distress Head: Present normocephalic GI: Present soft; Absent distention Comments:: Patient is abdomen soft and nondistended. She has tenderness in the right upper quadrant and right lower quadrant. Rectal (female): Present deferred (female): Present deferred Results Labs 09/06/23 12:38 09/06/23 12:38 Labs: Laboratory Results - last 24 hr 09/06/23 12:38: WBC 9.7, RBC 4.70, Hgb 13.9, Hct 42.7, MCV 91.0, MCH 29.6, MCHC 32.5, RDW 13.3, Plt Count 404, MPV 8.0, Neut % (Auto) 52.4, Lymph % (Auto) 37.4, [place] % (Auto) 6.4, Eos % (Auto) 2.7, Baso % (Auto) 1.2, Neut # (Auto) 5.1, Lymph # (Auto) 3.6, [place] # (Auto) 0.6, Eos # (Auto) 0.3, Baso # (Auto) 0.1, Sodium 141, Potassium 3.7, Chloride 105, Carbon Dioxide 26, Anion Gap 13.7, BUN 8, Creatinine 0.70, Estimated Creat Clear 129, Estimated GFR 100, Est GFR ( Amer) 121, Glucose 96, Lactate 1.4, Calcium 9.5, Total Bilirubin 0.4, AST 43 H, ALT 38, Alkaline Phosphatase 73, C-Reactive Protein 2.2, Total Protein 8.4 H, Albumin 4.8, Globulin 3.6 H, Albumin/Globulin Ratio 1.3, Lipase 149, Serum HCG, Qual Negative 09/06/23 15:03: Urine Color Yellow, Urine Appearance Clear, Urine pH 6.5, Ur Specific [place] 1.010, Urine Protein Negative, Urine Glucose (UA) Negative, Urine Ketones Negative, Urine Blood Negative, Urine Nitrate Negative, Urine Bilirubin Negative, Urine Urobilinogen 0.2, Ur Leukocyte Esterase Negative, Ur Squamous Epith Cells 3-5, Urine Bacteria Trace Assessment and Plan *Assessment and plan (1) Partial obstruction of small intestine: Problem Comment: Onset of abdominal pain Status: Acute Category: Medical Code(s): K56.600 - Partial intestinal obstruction, unspecified as to cause Plan Possible partial small bowel obstruction. Highly doubt appendicitis. She is tender in the right upper and right lower quadrant where her small bowel resides due to her congenital surgical history. May try to hold off on a NG tube at this time as her abdomen is soft and nondistended and she currently has no nausea. I will do follow-up plain abdominal x-rays. May need a small bowel follow-through if symptoms remain equivocal however I would not pursue this immediately due to CT scan with contrast yesterday evening. Possibility of gallbladder etiology is present but this seems less likely.
--- NOTE | 2023-09-07 06:56 | XR_ITS ---
FINAL REPORT CLINICAL HISTORY: ABDOMINAL PAIN COMPARISON: 10/05/2020 FINDINGS: The lungs are grossly clear. There is no evidence of effusion, pneumothorax or other significant pleural disease. The mediastinum is unremarkable. The heart size is normal. There is retained contrast in nondilated distal colon. There is no evidence of bowel obstruction. There is no free intraperitoneal air. No abdominal radiopacities are seen in the abdomen. IMPRESSION: Unremarkable abdominal series. Reviewed, Interpreted and Dictated by Martita lOiver MD Transcribed by Lynette Vogel Authenticated and [facility]
[2023-09-07 07:00] LABS: Basophils # 0.1 K/mm3 (0-0.2); Basophils % 0.7 % (0.1-2.0); Eosinophils # 0.2 K/mm3 (0.0-0.4); Eosinophils % 1.6 % (0.1-12.0); Hematocrit 36.3 % (37.0-47.0); Lymphocytes % 19.2 % (10-50); Mean Corpuscular Hemoglobin 31.6 pg (27.0-31.2); Mean Corpuscular Volume 95.8 fl (81-99); Mean Platelet Volume 8.1 fl (7.4-10.4); Monocytes # 0.6 K/mm3 (0.1-1.0); Monocytes % 5.6 % (1.7-9.3); Neutrophils # 7.8 K/mm3 (1.8-7.8); Neutrophils % 73.1 % (37.0-80.0); Platelet Count 301 K/mm3 (142-424); Red Blood Count 3.78 M/mm3 (4.20-5.40); Red Cell Distribution Width 12.9 % (11.5-17.5); White Blood Count 10.7 K/mm3 (4.8-10.8)
[2023-09-07 07:08] LABS: Alanine Aminotransferase 30 U/L (12-78); Aspartate Amino Transferase 61 U/L (14-36); Blood Urea Nitrogen 5 mg/dl (7-17); Creatinine Clearance Estimated 153 mL/min (50-200); Estimated Glomerular Filt Rate 119 ml/min (>60); GFR (African American) 144 ML/MIN (>60)
[2023-09-07 07:09] LABS: Alkaline Phosphatase 80 U/L (38-126); Bilirubin,Total 0.8 mg/dl (0.2-1.3)
[2023-09-07 07:14] LABS: Chloride 108 mmol/L (98-107); Sodium 136 mmol/L (136-145)
[2023-09-07 07:17] LABS: Albumin Level 3.7 g/dl (3.5-5.0); Albumin/Globulin Ratio 1.3 (1.1-1.8); Globulin 2.8 g/dL (1.3-3.2); Total Protein,Serum 6.5 g/dl (6.3-8.2)
[2023-09-07 07:18] LABS: Calcium 8.5 mg/dl (8.4-10.2); Glucose 83 mg/dl (74-100)
[2023-09-07 07:25] LABS: Potassium 4.1 mmoL/L (3.5-5.1)
[2023-09-07 07:37] LABS: Anion Gap 11.1 mEq/L (5-15); Carbon Dioxide 21 mmol/L (22.0-30.0)
[2023-09-07 07:42] LABS: Hemoglobin 12.2 g/dL (12.2-16.2)
[2023-09-07 07:45] VITALS: BP 112/71; PULSE 68; RESP 16; TEMP 37.1; O2SAT 98
[2023-09-07] MEDS: PANTOPRAZOLE 40MG VIAL 40 MG IV ×2 (08:16→20:02)
--- NOTE | 2023-09-07 15:51 | EXP.ACUTE.PN ---
Subjective *Date: 09/07/23 *Time: 18:02 Interval history: Still having some abdominal discomfort on the right hemiabdomen today. Had a bowel movement and emesis this morning. No fever. Stable on room air. Medical Exam Vital signs and Labs for Last 24 Hours: Vital Signs Temp Pulse Pulse Resp BP BP Pulse Ox 09/07/23 14:37 09/07/23 13:00 09/07/23 11:00 09/07/23 09:00 09/07/23 08:00 09/07/23 07:45 98.7 F 68 16 112/71 98 09/07/23 06:49 09/07/23 05:00 09/07/23 04:00 98.5 F 72 16 111/52 L 98 09/07/23 03:00 09/07/23 01:00 09/06/23 23:00 09/06/23 23:00 09/06/23 21:25 98.2 F 71 18 131/95 H 09/06/23 21:12 98.2 F 71 18 131/95 H 100 09/06/23 21:00 09/06/23 20:00 66 168/115 H 97 09/06/23 19:50 72 160/114 H 98 09/06/23 19:41 66 165/120 H 99 09/06/23 19:30 64 137/97 H 100 09/06/23 19:20 61 147/109 H 100 09/06/23 19:12 63 162/119 H 100 09/06/23 18:30 60 114/83 99 09/06/23 18:20 59 L 115/88 98 09/06/23 18:10 60 121/90 100 09/06/23 18:00 59 L 114/80 99 09/06/23 17:52 69 112/78 98 09/06/23 17:50 58 L 112/78 100 09/06/23 17:40 69 113/78 99 09/06/23 17:30 60 113/84 100 09/06/23 17:00 68 132/97 H 100 09/06/23 16:30 61 122/92 H 100 09/06/23 16:20 65 126/81 100 09/06/23 16:10 76 133/103 H 98 09/06/23 16:00 73 130/94 H 100 O2 Del Method 09/07/23 14:37 Room Air 09/07/23 13:00 Room Air 09/07/23 11:00 Room Air 09/07/23 09:00 Room Air 09/07/23 08:00 Room Air 09/07/23 07:45 Room Air 09/07/23 06:49 Room Air 09/07/23 05:00 Room Air 09/07/23 04:00 Room Air 09/07/23 03:00 Room Air 09/07/23 01:00 Room Air 09/06/23 23:00 Room Air 09/06/23 23:00 Room Air 09/06/23 21:25 Room Air 09/06/23 21:12 Room Air 09/06/23 21:00 Room Air 09/06/23 20:00 09/06/23 19:50 09/06/23 19:41 09/06/23 19:30 09/06/23 19:20 09/06/23 19:12 09/06/23 18:30 Room Air 09/06/23 18:20 Room Air 09/06/23 18:10 Room Air 09/06/23 18:00 Room Air 09/06/23 17:52 Room Air 09/06/23 17:50 Room Air 09/06/23 17:40 Room Air 09/06/23 17:30 09/06/23 17:00 09/06/23 16:30 Room Air 09/06/23 16:20 Room Air 09/06/23 16:10 Room Air 09/06/23 16:00 Room Air Intake and Output 09/06/23 09/07/23 09/07/23 23:59 07:59 15:59 Intake Total 0 / 120 120 / 120 Output Total 0 / 0 Balance 0 / 0 0 / 120 120 / 120 Intake: Intake, Oral Amount 0 / 120 120 / 120 Output: Output, Urine Amount 0 / 0 Other: Number of Unmeasured Voids 1 Weight 69.626 kg 69.626 kg Patient Weight 09/07/23 23:59 Weight 69.626 kg Laboratory Results - last 24 hr 09/07/23 06:21: WBC 10.7, RBC 3.78 L, Hgb 12.2 D, Hct 36.3 L, MCV 95.8, MCH 31.6 H, MCHC 33.0, RDW 12.9, Plt Count 301 D, MPV 8.1, Neut % (Auto) 73.1, Lymph % (Auto) 19.2, [place] % (Auto) 5.6, Eos % (Auto) 1.6, Baso % (Auto) 0.7, Neut # (Auto) 7.8, Lymph # (Auto) 2.0, [place] # (Auto) 0.6, Eos # (Auto) 0.2, Baso # (Auto) 0.1, Sodium 136, Potassium 4.1, Chloride 108 H, Carbon Dioxide 21 L, Anion Gap 11.1, BUN 5 L D, Creatinine 0.60, Estimated Creat Clear 153, Estimated GFR 119, Est GFR ( Amer) 144, Glucose 83, Calcium 8.5, Total Bilirubin 0.8, AST 61 H D, ALT 30, Alkaline Phosphatase 80, Total Protein 6.5, Albumin 3.7 D, Globulin 2.8, Albumin/Globulin Ratio 1.3 I & O for Labs for Last 24 Hours: Intake & Output 09/04/23 09/05/23 09/06/23 09/07/23 23:59 23:59 23:59 23:59 Intake Total 120 / 120 Output Total 0 / 0 Balance 0 / 0 120 / 120 Weight 69.626 kg 69.626 kg Constitutional: Present no acute distress, average body habitus and cooperative Head: Present atraumatic and normocephalic ENT: Present normal exam Neck: Present normal inspection Respiratory: Present normal respiratory effort; Absent rhonchi, wheezes or crackles Cardiac: Present Reg Rate and Rhythm GI: Present soft, tenderness (Right hemiabdomen) and normal bowel sounds; Absent distention Comments:: Small scar with umbilicus. No midline incision Extremities: Present normal inspection and full ROM Skin: Present intact; Absent erythema Neuro: Present Grossly Intact, alert, awake, oriented x 3 and moves all extremities Assessment and Plan *Assessment and plan (1) Partial obstruction of small intestine: Start date: 09/06/23 Status: Acute Category: Medical Code(s): K56.600 - Partial intestinal obstruction, unspecified as to cause (2) History of gastroschisis: Start date: 95 Problem Comment: Patient born with congenital bowel issue Status: Resolved Category: Surgical Code(s): Z87.761 - Personal history of (corrected) gastroschisis Plan: Patient had surgical correction of bowel issue (3) Abdominal pain: Start date: 09/06/23 Status: Acute Qualifiers: Abdominal location: generalized Qualified Code(s): R10.84 - Generalized abdominal pain Category: Medical Code(s): R10.9 - Unspecified abdominal pain Plan 28-year-old female with history of gastroschisis as an . Presented with onset of abdominal pain. In the ER, imaging concerning for small bowel obstruction. Medicine admitted for further management. Surgery consulted and assisting with care. Overnight had episode of emesis and a bowel movement. Feeling a little bit better today. Discussed case with surgery, recommend bowel rest this morning, if passing gas, will advance diet to clear liquids. Encourage ambulation. - Tylenol 650 mg as needed every 6 hours for pain - Continue LR at 50 cc an hour for maintenance fluids. - Zofran 4 mg IV every 8 hours as needed for nausea - Morphine 4 mg IV every 2 hours as needed for severe breakthrough pain. Received 1 dose overnight. Monitor for toxicity White cell count normal at 10.7, hemoglobin stable at 12.2. Electrolytes normal with potassium 4.1, sodium 136. Kidney function stable BUN 5, creatinine 0.6. Ordered repeat CBC, CMP, magnesium for the morning. Full code Clear liquid diet
[2023-09-07 16:00] VITALS: BP 125/66; PULSE 77; RESP 16; TEMP 37.1; O2SAT 97
--- NOTE | 2023-09-07 17:25 | PC.NURSE ---
NO ACUTE CHANGES SINCE PREVIOUS ASSESSMENT. PT AMBULATED IN HALLWAY MULTIPLE TIMES THIS SHIFT AND TOLERATED WELL.
[2023-09-07] MEDS: MORPHINE 4MG/ML SYRINGE 4 MG IV (18:52)
[2023-09-07] MEDS: LACTATED RINGERS 1000ML 1,000 ML 50 ML IV (18:52)
[2023-09-07 20:00] VITALS: BP 130/72; PULSE 68; RESP 18; TEMP 37.4; O2SAT 100
[2023-09-07] MEDS: SODIUM CHLORIDE 0.9% 10ML VIAL 10 ML IV (20:02)
[2023-09-08] MEDS: MORPHINE 4MG/ML SYRINGE 4 MG IV ×2 (01:13→13:29)
[2023-09-08 04:00] VITALS: BP 137/79; PULSE 69; RESP 18; TEMP 36.9; O2SAT 99; BMI 29.4
[2023-09-08] MEDS: ACETAMINOPHEN 325MG TAB 650 MG PO ×2 (05:32→21:00)
--- NOTE | 2023-09-08 05:39 | PC.NURSE ---
Pt is alert and oriented. Independent in the room. Pt has complained of abdominal pain and headache, treated per mar. Pt has had no nausea or vomiting this shift. Took shower this shift. No other complaints from patient. Call light in reach.
[2023-09-08 07:04] LABS: Chloride 106 mmol/L (98-107); Potassium 3.7 mmoL/L (3.5-5.1); Sodium 136 mmol/L (136-145)
[2023-09-08 07:07] LABS: Alanine Aminotransferase 27 U/L (12-78); Albumin Level 3.5 g/dl (3.5-5.0); Albumin/Globulin Ratio 1.3 (1.1-1.8); Alkaline Phosphatase 64 U/L (38-126); Anion Gap 6.7 mEq/L (5-15); Aspartate Amino Transferase 31 U/L (14-36); Bilirubin,Total 0.6 mg/dl (0.2-1.3); Blood Urea Nitrogen 5 mg/dl (7-17); Calcium 8.6 mg/dl (8.4-10.2); Carbon Dioxide 27 mmol/L (22.0-30.0); Creatinine Clearance Estimated 137 mL/min (50-200); Estimated Glomerular Filt Rate 100 ml/min (>60); GFR (African American) 121 ML/MIN (>60); Globulin 2.7 g/dL (1.3-3.2); Glucose 80 mg/dl (74-100); Total Protein,Serum 6.2 g/dl (6.3-8.2)
[2023-09-08 07:08] LABS: Magnesium 1.7 mg/dl (1.6-2.3)
[2023-09-08 07:15] LABS: Basophils # 0.1 K/mm3 (0-0.2); Basophils % 0.9 % (0.1-2.0); Eosinophils # 0.2 K/mm3 (0.0-0.4); Eosinophils % 2.6 % (0.1-12.0); Hematocrit 36.2 % (37.0-47.0); Hemoglobin 11.8 g/dL (12.2-16.2); Lymphocytes # 3.3 K/mm3 (0.7-4.5); Lymphocytes % 38.3 % (10-50); Mean Corpuscular HGB Conc 32.5 g/dL (31.8-35.4); Mean Corpuscular Hemoglobin 30.4 pg (27.0-31.2); Mean Corpuscular Volume 93.5 fl (81-99); Mean Platelet Volume 7.8 fl (7.4-10.4); Monocytes # 0.5 K/mm3 (0.1-1.0); Monocytes % 5.9 % (1.7-9.3); Neutrophils # 4.5 K/mm3 (1.8-7.8); Neutrophils % 52.3 % (37.0-80.0); Platelet Count 321 K/mm3 (142-424); Red Blood Count 3.88 M/mm3 (4.20-5.40); White Blood Count 8.6 K/mm3 (4.8-10.8)
--- NOTE | 2023-09-08 07:16 | EXP.SURG.PN ---
Subjective Narrative: Patient's acute abdominal series yesterday revealed nonspecific bowel gas pattern. There was evidence of contrast throughout the colon with no evidence of bowel obstruction. She was started on clear liquid diet. She states that she did have some increased pain with liquid diet yesterday evening. Exam Data for Last 24 hours Vital signs and Labs for Last 24 Hours: Temp Pulse Resp BP Pulse Ox O2 Del Method 98.4 F 69 18 137/79 99 Room Air 09/08/23 04:00 09/08/23 04:00 09/08/23 04:00 09/08/23 04:00 09/08/23 04:00 09/08/23 06:49 Laboratory Results - last 24 hr 09/07/23 06:21: WBC 10.7, RBC 3.78 L, Hgb 12.2 D, Hct 36.3 L, MCV 95.8, MCH 31.6 H, MCHC 33.0, RDW 12.9, Plt Count 301 D, MPV 8.1, Neut % (Auto) 73.1, Lymph % (Auto) 19.2, [place] % (Auto) 5.6, Eos % (Auto) 1.6, Baso % (Auto) 0.7, Neut # (Auto) 7.8, Lymph # (Auto) 2.0, [place] # (Auto) 0.6, Eos # (Auto) 0.2, Baso # (Auto) 0.1, Sodium 136, Potassium 4.1, Chloride 108 H, Carbon Dioxide 21 L, Anion Gap 11.1, BUN 5 L D, Creatinine 0.60, Estimated Creat Clear 153, Estimated GFR 119, Est GFR ( Amer) 144, Glucose 83, Calcium 8.5, Total Bilirubin 0.8, AST 61 H D, ALT 30, Alkaline Phosphatase 80, Total Protein 6.5, Albumin 3.7 D, Globulin 2.8, Albumin/Globulin Ratio 1.3 09/08/23 06:20: Sodium 136, Potassium 3.7, Chloride 106, Carbon Dioxide 27, Anion Gap 6.7, BUN 5 L, Creatinine 0.70, Estimated Creat Clear 137, Estimated GFR 100, Est GFR ( Amer) 121, Glucose 80, Calcium 8.6, Magnesium 1.7, Total Bilirubin 0.6, AST 31 D, ALT 27, Alkaline Phosphatase 64, Total Protein 6.2 L, Albumin 3.5, Globulin 2.7, Albumin/Globulin Ratio 1.3 I & O for Last 24 hours: Intake & Output 09/05/23 09/06/23 09/07/23 09/08/23 11:59 11:59 11:59 11:59 Intake Total 0 / 0 1206 / 1206 Output Total 0 / 0 0 / 0 Balance 0 / 0 1206 / 1206 Weight 153 lb 8 oz 159 lb 12.8 oz *Routine Abdominal Exam Abdominal: Present soft and tenderness Comments: Tender right upper quadrant and right lower quadrant. Progress Note: A&P Assessment and plan (1) Partial obstruction of small intestine: Status: Acute Assessment and plan: Continue to with clear liquids only for right now given her symptoms and findings on physical examination. I will do a follow-up abdominal x-ray. 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
--- NOTE | 2023-09-08 07:18 | XR_ITS ---
FINAL REPORT CLINICAL HISTORY: abdominal pain COMPARISON: 09/07/2023 FINDINGS: The lungs are grossly clear. There is no evidence of effusion, pneumothorax or other significant pleural disease. The mediastinum is unremarkable. The heart size is normal. There is retained contrast within nondilated distal colon, similar to previous. There is no free intraperitoneal air. no abdominal radiopacities are seen in the abdomen. IMPRESSION: Unremarkable abdominal series. Reviewed, Interpreted and Dictated by Martita Oliver MD Transcribed by Nivia Wall Authenticated and [facility]
[2023-09-08 08:00] VITALS: BP 114/59; PULSE 78; RESP 17; TEMP 36.4; O2SAT 97
[2023-09-08] MEDS: LACTATED RINGERS 1000ML 1,000 ML 50 ML IV (13:29)
[2023-09-08 16:00] VITALS: BP 111/62; PULSE 64; RESP 16; TEMP 36.6; O2SAT 100
--- NOTE | 2023-09-08 16:22 | P.PN_ITS ---
Subjective *Date: 09/08/23 *Time: 16:22 Interval history: patient is seen at bedside, denied CP, SOB, N/V Exam Data for Last 24 hours Vital signs and Labs for Last 24 Hours: Temp Pulse Resp BP Pulse Ox O2 Del Method 97.5 F L 78 17 114/59 L 97 Room Air 09/08/23 08:00 09/08/23 08:00 09/08/23 08:00 09/08/23 08:00 09/08/23 08:00 09/08/23 08:00 Laboratory Results - last 24 hr 09/08/23 06:20: WBC 8.6, RBC 3.88 L, Hgb 11.8 L, Hct 36.2 L, MCV 93.5, MCH 30.4, MCHC 32.5, RDW 13.0, Plt Count 321, MPV 7.8, Neut % (Auto) 52.3, Lymph % (Auto) 38.3, [place] % (Auto) 5.9, Eos % (Auto) 2.6, Baso % (Auto) 0.9, Neut # (Auto) 4.5, Lymph # (Auto) 3.3, [place] # (Auto) 0.5, Eos # (Auto) 0.2, Baso # (Auto) 0.1, Sodium 136, Potassium 3.7, Chloride 106, Carbon Dioxide 27, Anion Gap 6.7, BUN 5 L, Creatinine 0.70, Estimated Creat Clear 137, Estimated GFR 100, Est GFR ( Amer) 121, Glucose 80, Calcium 8.6, Magnesium 1.7, Total Bilirubin 0.6, AST 31 D, ALT 27, Alkaline Phosphatase 64, Total Protein 6.2 L, Albumin 3.5, Globulin 2.7, Albumin/Globulin Ratio 1.3 I & O for Last 24 hours: Intake & Output 09/05/23 09/06/23 09/07/23 09/08/23 23:59 23:59 23:59 23:59 Intake Total 1206 / 1206 Output Total 0 / 0 0 / 0 0 / 0 Balance 0 / 0 1206 / 1206 0 / 0 Weight 69.626 kg 69.626 kg 72.484 kg Constitutional Constitutional: no acute distress *Routine HEENT Exam Head: Present normocephalic Eye: Present EOMI and PERRL ENT: Present mucous membranes moist *Routine Neck Exam Neck: Present supple; Absent lymphadenopathy *Routine Respiratory Exam Respiratory: Present CTA bilaterally *Routine Cardiovascular Exam Cardiovascular: Present RRR *Routine Abdominal Exam Abdominal: Present soft and normoactive bowel sounds; Absent tenderness *Routine Extremities Exam Extremities: Absent cyanosis, clubbing or edema *Routine Skin Exam Skin: Present warm; Absent rash *Routine Neurological Exam Neurological: Present alert and oriented X3 Assessment and Plan *Assessment and plan (1) Partial obstruction of small intestine: Start date: 09/06/23 Status: Acute Category: Medical Code(s): K56.600 - Partial intestinal obstruction, unspecified as to cause (2) History of gastroschisis: Start date: 95 Problem Comment: Patient born with congenital bowel issue Status: Resolved Category: Surgical Code(s): Z87.761 - Personal history of (corrected) gastroschisis Plan: Patient had surgical correction of bowel issue (3) Abdominal pain: Start date: 09/06/23 Status: Acute Qualifiers: Abdominal location: generalized Qualified Code(s): R10.84 - Generalized abdominal pain Category: Medical Code(s): R10.9 - Unspecified abdominal pain Plan 28-year-old female with history of gastroschisis as an . Presented with onset of abdominal pain. In the ER, imaging concerning for small bowel obstruction. Medicine admitted for further management. Surgery consulted and assisting with care. Overnight had episode of emesis and a bowel movement. Feeling a little bit better today. Discussed case with surgery, recommend bowel rest this morning, if passing gas, will advance diet to clear liquids. Encourage ambulation. continue IV fluids advance diet as tolerated discussed with GS if continues to tolerate diet and pass flatus, BMs, will likely dc 1-2 days pain control Full code Full liquid diet ordered
--- NOTE | 2023-09-08 19:00 | PC.NURSE ---
Patient c/o pain x1 today, pain relieved with pain medication. Patient able to tolerate advance in diet at dinner time.
[2023-09-08 20:00] VITALS: BP 144/108; BP 163/109; PULSE 70; RESP 16; TEMP 36.9; O2SAT 100
[2023-09-08] MEDS: PANTOPRAZOLE 40MG VIAL 40 MG IV (21:00)
[2023-09-08] MEDS: SODIUM CHLORIDE 0.9% 10ML FLUSH SYRINGE 10 ML IV (21:00)
[2023-09-09 04:00] VITALS: BP 117/77; PULSE 68; RESP 16; TEMP 36.7; O2SAT 100; BMI 28.5
[2023-09-09 06:46] LABS: Chloride 106 mmol/L (98-107); Potassium 3.8 mmoL/L (3.5-5.1); Sodium 138 mmol/L (136-145)
[2023-09-09 06:49] LABS: Alanine Aminotransferase 28 U/L (12-78); Albumin Level 3.7 g/dl (3.5-5.0); Albumin/Globulin Ratio 1.4 (1.1-1.8); Alkaline Phosphatase 64 U/L (38-126); Anion Gap 10.8 mEq/L (5-15); Aspartate Amino Transferase 37 U/L (14-36); Bilirubin,Total 0.7 mg/dl (0.2-1.3); Blood Urea Nitrogen 5 mg/dl (7-17); Calcium 8.7 mg/dl (8.4-10.2); Carbon Dioxide 25 mmol/L (22.0-30.0); Creatinine Clearance Estimated 134 mL/min (50-200); Estimated Glomerular Filt Rate 100 ml/min (>60); GFR (African American) 121 ML/MIN (>60); Globulin 2.6 g/dL (1.3-3.2); Glucose 80 mg/dl (74-100); Total Protein,Serum 6.3 g/dl (6.3-8.2)
[2023-09-09 07:36] VITALS: BP 135/72; PULSE 77; RESP 18; TEMP 37.3; O2SAT 99
--- NOTE | 2023-09-09 08:20 | EXP.SURG.PN ---
Subjective Patient reports: still having pain Narrative: She states that she had a rough night . She is experiencing more pain than yesterday. Exam Data for Last 24 hours Vital signs and Labs for Last 24 Hours: Temp Pulse Resp BP Pulse Ox O2 Del Method 99.1 F 77 18 135/72 99 Room Air 09/09/23 07:36 09/09/23 07:36 09/09/23 07:36 09/09/23 07:36 09/09/23 07:36 09/09/23 07:36 Laboratory Results - last 24 hr 09/09/23 05:56: Sodium 138, Potassium 3.8, Chloride 106, Carbon Dioxide 25, Anion Gap 10.8, BUN 5 L, Creatinine 0.70, Estimated Creat Clear 134, Estimated GFR 100, Est GFR ( Amer) 121, Glucose 80, Calcium 8.7, Total Bilirubin 0.7, AST 37 H, ALT 28, Alkaline Phosphatase 64, Total Protein 6.3, Albumin 3.7, Globulin 2.6, Albumin/Globulin Ratio 1.4 I & O for Last 24 hours: Intake & Output 09/06/23 09/07/23 09/08/23 09/09/23 11:59 11:59 11:59 11:59 Intake Total 0 / 0 1206 / 1206 1260 / 1260 Output Total 0 / 0 0 / 0 0 / 0 Balance 0 / 0 1206 / 1206 1260 / 1260 Weight 153 lb 8 oz 159 lb 12.8 oz 156 lb 5 oz Constitutional Constitutional: no acute distress *Routine Cardiovascular Exam Cardiovascular: Absent tachycardia *Routine Abdominal Exam Abdominal: Present soft and tenderness Progress Note: A&P Assessment and plan (1) Partial obstruction of small intestine: Status: Acute Assessment and plan: Abdominal films yesterday reveal contrast in a nondilated distal colon. No definitive evidence of obstruction noted. She has developed increasing pain over the past 12 hours. Definitive etiology remains somewhat equivocal; however, there is currently no evidence of mechanical obstruction requiring surgical intervention. 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
--- NOTE | 2023-09-09 09:57 | CT_ITS ---
FINAL REPORT TECHNIQUE: Axial images through the abdomen and pelvis were performed without contrast. This study was performed with techniques to keep radiation doses as low as reasonably achievable, (ALARA). Individualized dose reduction techniques using automated exposure control or adjustment of mA and/or kV according to the patient's size were employed. CLINICAL HISTORY: Abdominal pain COMPARISON: 09/06/2023 FINDINGS: Abdomen: Lung bases are clear. Liver, spleen, pancreas and adrenal glands have a normal CT appearance in their limited unenhanced state. There is increased density within the gallbladder, may represent vicarious excretion of contrast or less likely stones/sludge. There is a nonobstructing left renal stone. No obvious renal mass is present. No ureteral stones are present. There is resolved bowel dilatation from prior exam. 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 Pelvis: Appendix in the left upper quadrant remains mildly enlarged, probably due to nathalia appendix. Contrast has passed into the distal colon. Small bowel dilatation is resolved. Uterus and ovaries are normal. No distal ureteral stones are seen. Bladder is unremarkable. No fluid collection or adenopathy is seen. IMPRESSION: Resolved bowel dilatation from prior exam which may reflect resolved obstruction or ileus. Enlarged appendix considered normal variant. Left nephrolithiasis. Reviewed, Interpreted and Dictated by Martita Oliver MD Transcribed by Nivia Wall Authenticated and [facility]
[2023-09-09] MEDS: LACTATED RINGERS 1000ML 1,000 ML 50 ML IV (11:10)
--- NOTE | 2023-09-09 11:43 | US_ITS ---
PROCEDURE INFORMATION: Exam: US Abdomen, Limited; Right Upper Quadrant Exam date and time: 09/09/2023 2:37 PM Age: 28 years old Clinical indication: Abdominal pain TECHNIQUE: Imaging protocol: Real time ultrasound of the abdomen with image documentation. Limited exam focused on the right upper quadrant. COMPARISON: CT ABDOMEN PELVIS WO CON 09/09/2023 10:18 AM FINDINGS: Liver: There is diffuse fatty infiltration throughout the liver. Hypoechoic lesion in the right hepatic lobe measuring 1.7 cm likely reflects focal fatty sparing. Gallbladder: The gallbladder is well-distended and unremarkable, with no evidence of cholelithiasis, wall thickening, or pericholecystic fluid. The common bile duct measures within normal limits, and there are no signs of dilatation. Biliary ducts: Common bile duct is dilated measuring up to 1 cm. Pancreas: Visualized pancreas is unremarkable. Right kidney: The right kidney is normal in size, contour, and echogenicity. No hydronephrosis, renal calculi, or focal renal lesions are identified. The renal pelvis and calyces appear unremarkable, and there is no evidence of obstruction. IMPRESSION: 1. Dilated common bile duct measuring up to 1 cm could reflect choledocholithiasis. No stones are discretely visualized in the gallbladder. Further evaluation with contrast-enhanced MRI/MRCP may provide additional information. 2. Hepatic steatosis. 3. Hypoechoic lesion in the right hepatic lobe measuring 1.7 cm likely reflects focal fatty sparing.
--- NOTE | 2023-09-09 15:58 | PC.NURSE ---
PT IS SITTING UP IN CHAIR VISITING WITH FAMILY. ALERT AND ORIENTED X4. PT COMPLAINS OF RIGHT UPPER ABDOMINAL PAIN HOWEVER REFUSES TO BE MEDICATED WITH MORPHINE B/C SHE STATES ALL IT DOES IS MAKE ME SLEEP . ABDOMEN SOFT WITH TENDERNESS NOTED TO RUQ WITH PALPATION. HYPOACTIVE BOWEL SOUNDS. LUNG SOUNDS CLEAR. NO SWELLING NOTED TO BLE. HOSPITALIST WAS NOTIFIED THIS MORNING ABOUT PT AND FAMILY REQUESTING TRANSFER TO [facility] B/C SHE SEES A PHYSICIAN BY THE NAME OF . WILL CONTINUE TO MONITOR.
[2023-09-09 16:00] VITALS: BP 136/73; PULSE 73; RESP 20; TEMP 37; O2SAT 100
--- NOTE | 2023-09-09 16:45 | EXP.PN ---
Subjective *Date: 09/09/23 *Time: 16:45 Interval history: seen at bedside, complains of abdominal pain in epigastric pain Exam Data for Last 24 hours Vital signs and Labs for Last 24 Hours: Temp Pulse Resp BP Pulse Ox O2 Del Method 98.6 F 73 20 136/73 100 Room Air 09/09/23 16:00 09/09/23 16:00 09/09/23 16:00 09/09/23 16:00 09/09/23 16:00 09/09/23 16:00 Laboratory Results - last 24 hr 09/09/23 05:56: Sodium 138, Potassium 3.8, Chloride 106, Carbon Dioxide 25, Anion Gap 10.8, BUN 5 L, Creatinine 0.70, Estimated Creat Clear 134, Estimated GFR 100, Est GFR ( Amer) 121, Glucose 80, Calcium 8.7, Total Bilirubin 0.7, AST 37 H, ALT 28, Alkaline Phosphatase 64, Total Protein 6.3, Albumin 3.7, Globulin 2.6, Albumin/Globulin Ratio 1.4 I & O for Last 24 hours: Intake & Output 09/06/23 09/07/23 09/08/23 09/09/23 23:59 23:59 23:59 23:59 Intake Total 1206 / 1206 1140 / 1140 1372 / 1372 Output Total 0 / 0 0 / 0 0 / 0 Balance 0 / 0 1206 / 1206 1140 / 1140 1372 / 1372 Weight 69.626 kg 69.626 kg 72.484 kg 70.902 kg Constitutional Constitutional: no acute distress *Routine HEENT Exam Head: Present normocephalic Eye: Present EOMI and PERRL ENT: Present mucous membranes moist *Routine Neck Exam Neck: Present supple; Absent lymphadenopathy *Routine Respiratory Exam Respiratory: Present CTA bilaterally *Routine Cardiovascular Exam Cardiovascular: Present RRR *Routine Abdominal Exam Abdominal: Present soft, normoactive bowel sounds and tenderness *Routine Extremities Exam Extremities: Absent cyanosis, clubbing or edema *Routine Skin Exam Skin: Present warm; Absent rash *Routine Neurological Exam Neurological: Present alert and oriented X3 Assessment and Plan *Assessment and plan (1) Partial obstruction of small intestine: Start date: 09/06/23 Status: Acute Category: Medical Code(s): K56.600 - Partial intestinal obstruction, unspecified as to cause (2) History of gastroschisis: Start date: 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 Presented with onset of abdominal pain. In the ER, imaging concerning for small bowel obstruction. Medicine admitted for further management. Surgery consulted and assisting with care. Overnight had episode of emesis and a bowel movement. Feeling a little bit better today. Discussed case with surgery, recommend bowel rest this morning, if passing gas, will advance diet to clear liquids. Encourage ambulation. continue IV fluids advance diet as tolerated GB US ordered - 1. Dilated common bile duct measuring up to 1 cm could reflect choledocholithiasis. No stones are discretely visualized in the gallbladder. Further evaluation with contrast-enhanced MRI/MRCP may provide additional information. 2. Hepatic steatosis. 3. Hypoechoic lesion in the right hepatic lobe measuring 1.7 cm likely reflects focal fatty sparing. CT abd shows improvement in bowel obstruction if continues to tolerate diet and pass flatus, BMs, will likely dc 1-2 days pain control Full code Full liquid diet ordered
[2023-09-09 20:00] VITALS: BP 118/77; PULSE 70; RESP 16; TEMP 36.7; O2SAT 97
[2023-09-09] MEDS: PANTOPRAZOLE 40MG VIAL 40 MG IV (20:38)
[2023-09-09] MEDS: SODIUM CHLORIDE 0.9% 10ML VIAL 10 ML IV (20:38)
[2023-09-10] MEDS: MORPHINE 4MG/ML SYRINGE 4 MG IV (00:44)
[2023-09-10 04:00] VITALS: BP 117/66; PULSE 67; RESP 16; TEMP 36.5; O2SAT 100; BMI 28.8
[2023-09-10] MEDS: LACTATED RINGERS 1000ML 1,000 ML 50 ML IV (05:16)
--- NOTE | 2023-09-10 05:37 | PC.NURSE ---
Patient is alert and oriented x4. Patient has rested well throughout the night. Patient has had a few visitors at bedside and has overall been pleasant. Patient is tolerating room air well and her bowel sounds were active in all quadrants upon auscultation. Her abdomen is distillery miller to touch. Her last bowel movement was yesterday, during the prior shift. Patient has been walking the halls in the early evening and has been very independent. She has been NPO since midnight; prior to this, she was on a full liquid diet, was given some ice cream at around 2240, and tolerated it well. She has not had any complaints of nausea at this time. Patient started complaining of abdominal pain at 00:30 and rated her pain as a level 6. She was given 1 dose of morphine per MAR; patient reported relief of her pain, and has not had any other complaints at this time. Patient has been receiving Lactated Ringers running at 50 mL/hr; she currently has an infusion running. Patient is sleeping at this time. Call light is within reach.
--- NOTE | 2023-09-10 06:30 | EXP.SURG.PN ---
Subjective Narrative: Notes reviewed. Yesterday patient had developed some recurrent upper abdominal pain with an episode of nausea and vomiting. She underwent CT scan which revealed findings of resolved bowel dilatation from prior exam which may reflect resolved obstruction or ileus. Enlarged appendix considered normal variant. She also had a gallbladder ultrasound performed which revealed dilated common bile duct measuring up to 1 cm could reflect choledocholithiasis. No stones are discretely visualized in the gallbladder. Further evaluation with contrast-enhanced MRI/MRCP may provide additional information. Hepatic steatosis. Hypoechoic lesion in the right hepatic lobe measuring 1.7 cm likely reflects focal fatty sparing. She did have essentially normal liver function test. Patient's bowels did move yesterday. She states that she still does have some right upper quadrant pain. Currently NPO. . Exam Data for Last 24 hours Vital signs and Labs for Last 24 Hours: Temp Pulse Resp BP Pulse Ox O2 Del Method 97.7 F 67 16 117/66 100 Room Air 09/10/23 04:00 09/10/23 04:00 09/10/23 04:00 09/10/23 04:00 09/10/23 04:00 09/10/23 05:00 Laboratory Results - last 24 hr 09/09/23 05:56: Sodium 138, Potassium 3.8, Chloride 106, Carbon Dioxide 25, Anion Gap 10.8, BUN 5 L, Creatinine 0.70, Estimated Creat Clear 134, Estimated GFR 100, Est GFR ( Amer) 121, Glucose 80, Calcium 8.7, Total Bilirubin 0.7, AST 37 H, ALT 28, Alkaline Phosphatase 64, Total Protein 6.3, Albumin 3.7, Globulin 2.6, Albumin/Globulin Ratio 1.4 I & O for Last 24 hours: Intake & Output 09/07/23 09/08/23 09/09/23 09/10/23 11:59 11:59 11:59 11:59 Intake Total 0 / 0 1206 / 1206 1260 / 1260 2110 Output Total 0 / 0 0 / 0 0 / 0 0 / 0 Balance 0 / 0 1206 / 1206 1260 / 1260 2110 Weight 153 lb 8 oz 159 lb 12.8 oz 156 lb 5 oz 156 lb 4.994 oz *Routine Abdominal Exam Comments: Mild tenderness in the right upper quadrant Progress Note: A&P Assessment and plan (1) Partial obstruction of small intestine: Status: Acute (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 I would not plan for any surgical intervention at this time. HIDA scan may be reasonable but I would be hesitant to pursue this as an inpatient as interpretation and results would be skewed. Would likely benefit from early outpatient gastroenterology assessment.
--- NOTE | 2023-09-10 06:35 | PC.NURSE ---
Patient reported having abdominal pain. Pain medication was offered, but she refused it and did not want it at this time. Patient verbalized understanding of letting staff know if she changes her mind about pain interventions. Patient is sitting up in bed at this time with a visitor at bedside. Patient waiting for doctor rounds.
[2023-09-10 07:01] LABS: Chloride 106 mmol/L (98-107); Potassium 3.8 mmoL/L (3.5-5.1); Sodium 137 mmol/L (136-145)
[2023-09-10 07:04] LABS: Alanine Aminotransferase 32 U/L (12-78); Albumin Level 4.1 g/dl (3.5-5.0); Albumin/Globulin Ratio 1.5 (1.1-1.8); Alkaline Phosphatase 61 U/L (38-126); Anion Gap 11.8 mEq/L (5-15); Aspartate Amino Transferase 40 U/L (14-36); Bilirubin,Total 0.6 mg/dl (0.2-1.3); Blood Urea Nitrogen 7 mg/dl (7-17); Carbon Dioxide 23 mmol/L (22.0-30.0); Creatinine Clearance Estimated 134 mL/min (50-200); Estimated Glomerular Filt Rate 100 ml/min (>60); GFR (African American) 121 ML/MIN (>60); Globulin 2.7 g/dL (1.3-3.2); Glucose 79 mg/dl (74-100); Total Protein,Serum 6.8 g/dl (6.3-8.2)
[2023-09-10 08:00] VITALS: BP 124/74; PULSE 64; RESP 16; TEMP 36.6; O2SAT 96
--- NOTE | 2023-09-10 10:16 | PC.NURSE ---
Called Dr. Leon's office to clarify NPO and diet order per Dr. Donato and didnt get an answer. Will try and call again.
[2023-09-10 10:21] LABS: POC Glucose,Bedside 78 (70-110)
--- NOTE | 2023-09-10 12:46 | EXP.EVENT.NO ---
spoke to general surgery which recommended higher level of care transfer or DC with OP GI and GS follow up. Patient was informed and given options including getting MRCP MRI abdomen, or transfer to [facility] or [facility] or discharge with outpatient follow up. Patient chose to be discharged and follow up as OP and requesting referral for GI service. Patient informed if her health worsens or abdominal worsens she can come back to the emergency department. Patient agreed with the discharge plan and requesting to be discharged, she mentioned she will follow up with appointments
[2023-09-10] MEDS: MORPHINE 2MG/ML SYRINGE 1 MG IV (12:48)
--- NOTE | 2023-09-10 13:05 | P.DS_ITS ---
General Admission date:: 09/06/23 Discharge date: 09/10/23 HPI HPI HPI: Patient is a 28-year-old female with history of apparent congenital gastroschisis. Presented to the emergency department in the afternoon of 09/06/2023 with relatively acute onset of epigastric pain and occurring that morning approximately 6 AM located in the epigastrium and right upper quadrant. Evaluation in the emergency department revealed tenderness in the right upper quadrant. Laboratory evaluation was unremarkable. She underwent CT scan with IV contrast. Appendix was not identified. There were multiple fluid-filled loops of bowel in the pelvis. Radiology recommended CT scan with IV and oral contrast for her persistent symptoms and this was performed. Appendix was seen and measured 7.5 mm. Radiology reports this could indicate acute appendicitis. No surrounding inflammatory changes. Dilated loops of small bowel in the lower right side of the abdomen concerning for partial small bowel obstruction. Surgery was contacted regarding patient's history and findings of possible low- grade partial obstruction. Plan was for inpatient admission for management of partial obstruction. Her last bowel movement was overnight after admission. Minimal nausea, especially with significant pain yesterday. Hospital Course Hospital Course Hospital Course: 28-year-old female with history of gastroschisis as an infant. Presented with onset of abdominal pain. In the ER, imaging concerning for small bowel obstruction. Medicine admitted for further management. Surgery consulted and assisting with care. Overnight had episode of emesis and a bowel movement. Feeling a little bit better today. Discussed case with surgery, recommend bowel rest this morning, if passing gas, will advance diet to clear liquids. Encourage ambulation. continue IV fluids advance diet as tolerated GB US ordered - 1. Dilated common bile duct measuring up to 1 cm could reflect choledocholithiasis. No stones are discretely visualized in the gallbladder. Further evaluation with contrast-enhanced MRI/MRCP may provide additional information. 2. Hepatic steatosis. 3. Hypoechoic lesion in the right hepatic lobe measuring 1.7 cm likely reflects focal fatty sparing. CT abd shows improvement in bowel obstruction patient do not want MRI abdomen at this hospital and do not want to be transferred, patient is requesting to be discharged and follow up as OP with GI, referral given, patient informed if she feels her abdominal pain is worse to please come to the emergency department. Patient was informed her LFTs and kidney funtion are relatively unremarkable. patient verbalized understanding. On the date of discharge, the patient reported feeling stable. The patient was found not to be in any acute distress, and no new abnormalities on physical examination. Further, the patient expressed appropriate understanding of, and agreement with, the discharge recommendations, medications, and plan. Time spent 37 mins Exam Data for Last 24 hours Vital signs and Labs for Last 24 Hours: Temp Pulse Resp BP Pulse Ox O2 Del Method 98 F 64 16 124/74 96 Room Air 09/10/23 08:00 09/10/23 08:00 09/10/23 08:00 09/10/23 08:00 09/10/23 08:00 09/10/23 09:38 Laboratory Results - last 24 hr 09/10/23 06:06: Sodium 137, Potassium 3.8, Chloride 106, Carbon Dioxide 23, Anion Gap 11.8, BUN 7 D, Creatinine 0.70, Estimated Creat Clear 134, Estimated GFR 100, Est GFR ( Amer) 121, Glucose 79, Calcium 9.0, Total Bilirubin 0.6, AST 40 H, ALT 32, Alkaline Phosphatase 61, Total Protein 6.8, Albumin 4.1 D, Globulin 2.7, Albumin/Globulin Ratio 1.5 09/10/23 10:02: POC Glucose 78 I & O for Last 24 hours: Intake & Output 09/07/23 09/08/23 09/09/23 09/10/23 23:59 23:59 23:59 23:59 Intake Total 1206 / 1206 1140 / 1140 1792 / 2231 439 / 439 Output Total 0 / 0 0 / 0 0 / 0 0 / 0 Balance 1206 / 1206 1140 / 1140 1792 / 2231 439 / 439 Weight 69.626 kg 72.484 kg 70.902 kg 70.902 kg Constitutional Constitutional: no acute distress *Routine HEENT Exam Head: Present normocephalic Eye: Present EOMI and PERRL ENT: Present mucous membranes moist *Routine Neck Exam Neck: Present supple; Absent lymphadenopathy *Routine Respiratory Exam Respiratory: Present CTA bilaterally *Routine Cardiovascular Exam Cardiovascular: Present RRR *Routine Abdominal Exam Abdominal: Present soft and normoactive bowel sounds; Absent tenderness *Routine Extremities Exam Extremities: Absent cyanosis, clubbing or edema *Routine Skin Exam Skin: Present warm; Absent rash *Routine Neurological Exam Neurological: Present alert and oriented X3 Results Data Completed and Pending Labs on day of discharge: Labs from last 24 hours 09/10/23 09/10/23 10:02 06:06 Sodium 137 Potassium 3.8 Chloride 106 Carbon Dioxide 23 Anion Gap 11.8 BUN 7 D Creatinine 0.70 Estimated Creat Clear 134 Estimated GFR 100 Est GFR ( Amer) 121 Glucose 79 POC Glucose 78 Calcium 9.0 Total Bilirubin 0.6 AST 40 H ALT 32 Alkaline Phosphatase 61 Total Protein 6.8 Albumin 4.1 D Globulin 2.7 Albumin/Globulin Ratio 1.5 DS: Diagnosis Discharge Diagnosis (1) Partial obstruction of small intestine: Status: Acute Code(s): K56.600 - Partial intestinal obstruction, unspecified as to cause (2) History of gastroschisis: Status: Resolved Code(s): Z87.761 - Personal history of (corrected) gastroschisis Problem details: Patient born with congenital bowel issue (3) Abdominal pain: Status: Acute Code(s): R10.9 - Unspecified abdominal pain Qualifiers: Abdominal location: generalized Qualified Code(s): R10.84 - Generalized abdominal pain Meds Home Medications and Allergies Home Medications Medication Instructions Recorded Confirmed Type No Known Home Medications 09/07/23 09/07/23 History New Prescriptions to Start Prescriptions: Allergies Allergy/AdvReac Type Severity Reaction Status Date / Time No Known Allergies Allergy Verified 06/17/22 08:15 Discharge Plan Disposition Patient Disposition: Home, Self-Care Condition: Good Discharge Order Discharge Orders: Discharge Order (Routine); Ordered 09/10/23 Ordered By: Estephanie Donato Follow up Plan Follow up with: Alberto Leon MD [Staff Physician] - 1 week Marc Saleh MD [Referring] - Enter time for follow up ProviderEsperanza MD [Primary Care Provider] - 1 week Prescriptions/Medication Reconciliation: No Action No Known Home Medications Problem Reconciliation Problems Reviewed?: Yes Patient Discharge Instructions ACTIVITY: Ambulate as tolerated DIET: low fat, low cholesterol Patient Instructions: DI for Small Bowel Obstruction, DI for Abdominal Pain- Adult Providers Primary Care Provider: Provider,Referral Admit Provider: Elier Felder Attending Provider: Elier Felder
--- NOTE | 2023-09-11 12:07 | CARE MANAGER ---
Contacted patient related to hospital discharge. She states she still has pain, but has medication and is able to eat. She denies questions and concerns. She is aware of follow up appointments. BRYAN Parada
== END 2023-09-10 14:39 | disposition home or self-care (01) | DRG 390 ==
LOC: ER 15:25 → 2ND 21:54
PROVIDERS: Emergency Medicine; Nurse Practitioner Family; Admitting Provider Internal Medicine Adolescent Medicine; Emergency Provider Emergency Medicine; Visit Provider Internal Medicine Adolescent Medicine
DX: K56.600 Partial intestinal obstruction, unspecified as to cause (principal); F41.9 Anxiety disorder, unspecified; F32.A Depression, unspecified; Z87.761 Personal history of (corrected) gastroschisis
CPT/HCPCS: 36415; 74021; 74176; 74177; 76705; 80053; 81001; 82962; 83605; 83690; 83735; 84703; 85025; 86140; 93005; 99285; J0131; J1885; J2270; J2405; J7120; Q9963; Q9967

== ENCOUNTER 2023-09-22 12:24 | Emergency (ER) | payer BC, SELFPAY ==
[2023-09-22 12:36] VITALS: BP 130/87; PULSE 85; RESP 18; TEMP 36.7; O2SAT 100; BMI 26.5
[2023-09-22] MEDS: METHYLPREDNISOLONE SOD SUCC 125MG VIAL 125 MG IM (12:44)
--- NOTE | 2023-09-22 12:49 | ED_ITS ---
Discharge Plan Disposition Patient Disposition: Home, Self-Care Condition: Good Prescriptions Prescriptions: New triamcinolone acetonide 0.1 % cream 1 applic topical BID PRN (Reason: itching) Qty: 30 0RF diphenhydramine HCl 25 mg capsule 25 mg PO Q6HP PRN (Reason: Itching) Qty: 30 0RF methylprednisolone 4 mg Tablets,Dose Pack 4 mg PO DIRECTED 6 Days Qty: 21 0RF Rx Instructions: Take 1 pack as directed for 6 days No Action ondansetron HCl 4 mg tablet 4 mg PO Q8H PRN (Reason: nausea and vomiting) 3 Days Qty: 12 0RF hydrocodone-acetaminophen 5-325 mg tablet 1 tab PO Q8H PRN (Reason: pain) 3 Days Qty: 9 0RF Referrals Follow up/Referrals: Provider,Referral, MD [Primary Care Provider] - See instructions Activity Restrictions/Add. Instructions Additional Instructions/Restrictions: Don't start the oral steroids until tomorrow. The diphenhydramine (benedryl) will make you drowsy, so don't drive or operate heavy machinery after taking it. Follow up with your regular doctor. GO TO THE ER FOR ANY WORSENING SYMPTOMS OR CONCERNS Clinical Impressions Clinical Impression: Bee sting Instructions Patient Instructions: DI for Insect Bites and Stings, Methylprednisolone, Methylprednisolone Injection Discharge ED Provider: Elier Kinney [facility] General Stated complaint: bee sting Mode of Arrival: Ambulatory Source of Information: Patient Limitations: No Limitations Time Seen by Provider: 09/22/23 12:46 Description of Symptoms (Recalled from Triage Doc. by RN): pt reports she was running through the grass yesterday and stepped on a bee. pt presents with her L great toe and foot edematous, red and warm to the touch. pt states she last took benedryl at 0500 and nila yesterday without any relief. pt reports her pain is 5/10 and tight in nature. HEENT Symptoms (Recalled from RN notes): No Resp Symptoms (Recalled from RN notes): No Skin Symptoms (Recalled from RN notes): Yes MS Symptoms (Recalled from RN notes): No Functional Status (Recalled from RN notes): wnl History of Present Illness Provider Complaint: She states that she was stung on her left big toe yesterday by a bee. Since then she has had worsening swelling, redness, and itching of her left foot. Related Data Previous Rx's Medication Instructions Recorded hydrocodone 5 mg-acetaminophen 325 1 tab PO Q8H PRN pain 3 days #9 09/10/23 mg tablet tabs ondansetron HCl 4 mg tablet 4 mg PO Q8H PRN nausea and 09/10/23 vomiting 3 days #12 tabs diphenhydramine HCl 25 mg capsule 25 mg PO Q6HP PRN Itching #30 caps 09/22/23 methylprednisolone 4 mg tablets in 4 mg PO DIRECTED 6 days #21 tabs 09/22/23 a dose pack triamcinolone acetonide 0.1 % 1 applic topical BID PRN itching 09/22/23 topical cream #30 grams Allergies Allergy/AdvReac Type Severity Reaction Status Date / Time No Known Allergies Allergy Verified 09/22/23 12:40 Worker's Comp Is this a Worker's Comp case?: No [facility] Disclaimer: The information contained in this section may have been updated after the patient was seen, as this information can be updated by other users. Medical History Congenital gastroschisis Depression Anxiety Urinary tract infection Asthma Surgical History History of wisdom tooth extraction History of tonsillectomy Social History Smoking Status: Never smoker alcohol intake: never substance use type: denies use current occupational status: employed Travel in the last 8 weeks: None ROS Obtained: Yes All systems reviewed & no additional complaints except as documented Constitutional Constitutional: Denies chills and Denies fever(s) Eyes Eyes: Denies eye discharge ENT Ears, Nose, Mouth, and Throat: Denies dizziness, Denies otalgia and Denies sore throat Cardiovascular Cardiovascular: Denies chest pain Respiratory Respiratory: Denies shortness of breath, Denies chest congestion, Denies cough, Denies stridor and Denies wheezing Gastrointestinal Gastrointestingal: Denies nausea or vomiting Musculoskeletal Musculoskeletal: Reports system reviewed and no additional complaints, except as documented and Denies arthralgias Integumentary/Breasts Skin/Breast: Reports as per HPI and Reports redness Neurologic Neurologic: Denies dizziness and Denies paresthesias Allergic/Immunologic Allergic/Immunologic: Denies wheezing Physical Exam General General appearance: alert and in no apparent distress Head Head exam: atraumatic, normocephalic and normal inspection Eye Eye exam: Present normal appearance, PERRL and EOMI ENT ENT exam: Present normal exam, normal oropharynx, mucous membranes moist, TM's normal bilaterally and normal external ear exam Neck Neck exam: Present normal inspection, full ROM and trachea midline; Absent meningismus or lymphadenopathy Chest Chest inspection: Present normal inspection and symmetric chest wall rise; Absent tenderness Respiratory Respiratory exam: Present normal lung sounds bilaterally; Absent respiratory distress Cardiovascular Cardiovascular exam: Present regular rate and normal rhythm; Absent JVD Abdominal Exam Abdominal exam: Present soft and normal bowel sounds; Absent distention, tenderness or guarding Extremities Exam Extremities exam: Present normal inspection, full ROM and normal capillary refill; Absent calf tenderness Back Exam Back exam: Present normal inspection; Absent tenderness Neurological Exam Neurological exam: Present alert and oriented X3 Psychiatric Psychiatric exam: Present normal affect and normal mood Skin Skin exam: Present erythema (She has mild edema and erythema of her left foot. ) Lymphatic Lymphatic Findings: no adenopathy Medical Decision Making Medical Records Medical records reviewed: No I reviewed the patient's medical records. [place] Inquiry Pt receiving controlled substance: No Vital Signs: 09/22/23 12:36 Temperature 98.1 F Temperature Source Oral Pulse Rate [Left] 85 Respiratory Rate 18 Blood Pressure [Right Arm] 130/87 Blood Pressure Mean [Right Arm] 101 Blood Pressure Source [Right Arm] Automatic Cuff Blood Pressure Position [Right Arm] Sitting 02 Sat by Pulse Oximetry 100 Oxygen Delivery Method Room Air Orders (Tests/Meds): ED MEDICATIONS Generic Name Dose Route Start Last Admin Trade Name Ernieq PRN Reason Stop Dose Admin Methylprednisolone Sodium Succinate 125 mg 09/22/23 12:42 09/22/23 12:44 Methylprednisolone Sod Succ 125mg Vial IM 09/22/23 12:43 125 mg ONCE ONE Administration
[2023-09-22 12:58] VITALS: BP 130/87; PULSE 85; RESP 18; TEMP 36.7; O2SAT 100
== END 2023-09-22 12:59 | disposition home or self-care (01) ==
PROVIDERS: Emergency Provider Nurse Practitioner Family
DX: T63.441A Toxic effect of venom of bees, accidental (unintentional), initial encounter (principal); M79.675 Pain in left toe(s)
CPT/HCPCS: 96372; 99212; 99214; G0463; J2919

== ENCOUNTER 2023-09-23 09:59 | Outpatient (CLI) | payer BC, SELFPAY ==
--- NOTE | 2023-09-23 10:00 | NM_ITS ---
FINAL REPORT CLINICAL HISTORY: RUQ pain COMPARISON: None FINDINGS: Sequential anterior projection images of the abdomen were obtained after the intravenous injection of 7.63 mCi technetium 99m Choletec. There is normal uptake of radiotracer by the liver. The bile ducts are visualized by 15 minutes. Gallbladder activity is seen by 15 minutes. Bowel activity is noted immediately after CCK injection. After 1 hour, 1.3 ?g of CCK was injected intravenously for calculation of gallbladder ejection fraction. The gallbladder ejection fraction is 95%, which is within normal limits. IMPRESSION: No evidence of cystic duct or bile duct obstruction. Normal gallbladder ejection fraction of 95%. Reviewed, Interpreted and Dictated by Alberto Og III, MD Transcribed by Anabelle Sylvester Authenticated and [facility]
[2023-09-23 11:17] LABS: Urine Pregnancy, HCG Qual. Negative (Negative)
[2023-09-23] MEDS: SODIUM CHLORIDE 0.9% 10ML SYR (RAD ONLY) 10 ML IV (11:20)
[2023-09-23] MEDS: SINCALIDE 1.3 MCG in 0.9 % SODIUM CHLORIDE 50 ML 100 MCG IV (12:20)
[2023-09-23] MEDS: ISOTOPE CHOLETECH;1 DOSE (UP TO 15 MCI) IV (14:24)
== END 2023-09-23 23:59 | disposition home or self-care (01) ==
PROVIDERS: Physician Assistant; PCP Surgery; Visit Provider Surgery
DX: R10.11 Right upper quadrant pain (principal)
CPT/HCPCS: 78227; 81025; A9537; J2805

== ENCOUNTER 2023-11-21 11:13 | Emergency (ER) | payer BC, SELFPAY ==
[2023-11-21] VITALS (16 sets, daily range): BP systolic 105–186; BP diastolic 74–126; PULSE 69–103; RESP 14–24; TEMP 36.6–36.7; O2SAT 94–100; BMI 29.2
--- NOTE | 2023-11-21 11:24 | PC.NURSE ---
DR BURNETT AT BEDSIDE
--- NOTE | 2023-11-21 11:26 | CT_ITS ---
PROCEDURE INFORMATION: Exam: CTA Abdomen and Pelvis With Contrast Exam date and time: 11/21/2023 12:08 PM Age: 28 years old Clinical indication: Abdominal pain; Localized; Left upper quadrant (luq); Additional info: Malrotation, acute, severe luq pain and guarding TECHNIQUE: Imaging protocol: Computed tomographic angiography of the abdomen and pelvis with contrast. Exam focused on the arteries. 3D rendering (Not supervised by radiologist): MIP and/or 3D reconstructed images were created by the technologist. Radiation optimization: All CT scans at this facility use at least one of these dose optimization techniques: automated exposure control; mA and/or kV adjustment per patient size (includes targeted exams where dose is matched to clinical indication); or iterative reconstruction. Contrast material: ISOVUE 370; Contrast volume: 80 ml; Contrast route: INTRAVENOUS (IV); COMPARISON: CT ABDOMEN PELVIS WO CON 09/09/2023 10:18 AM FINDINGS: Aorta: No aortic aneurysm. No aortic dissection. Celiac trunk and mesenteric arteries: No occlusion or significant stenosis. Renal arteries: No occlusion or significant stenosis. Right iliac arteries: No occlusion or significant stenosis. Left iliac arteries: No occlusion or significant stenosis. Liver: Decreased density throughout the liver compatible with hepatic steatosis. 12 mm hemangioma posteriorly right lobe of the liver Gallbladder and biliary ducts: Gallbladder unremarkable Pancreas: Pancreas unremarkable Spleen: Splenic granulomas Adrenal glands: Adrenal glands unremarkable. Kidneys and ureters: 3 mm partially obstructing mid left ureteral calculus. Associated mild left hydroureteronephrosis. Stomach and bowel: Bowel amount rotation with the colon in the left abdomen. Appendix demonstrated anteriorly in the left upper quadrant. Persistent mild dilatation to 7 mm. Fluid now demonstrated within the majority of the appendix. Appendix: See Stomach and bowel finding. Intraperitoneal space: Unremarkable. No free air. No significant fluid collection. Lymph nodes: Unremarkable. No enlarged lymph nodes. Urinary bladder: Bladder collapsed Reproductive: Left corpus luteum cyst Bones/joints: No acute fracture. Soft tissues: Unremarkable. Other findings: Findings demonstrated on series 5, image number 60 . IMPRESSION: 1. 3 mm partially obstructing mid left ureteral calculus. Associated mild left hydroureteronephrosis. Findings new since 09/09/2023. 2. Findings suggesting mild changes of appendicitis. 3. A call has been placed to the referring physician at which time an addended report be issued.
[2023-11-21] MEDS: HYDROMORPHONE 2MG/ML SYRINGE 1 MG IV (11:33)
[2023-11-21] MEDS: ACETAMINOPHEN 1,000MG/100ML VIAL 1000 MG IV (11:33)
[2023-11-21] MEDS: ONDANSETRON 4MG/2ML VIAL 4 MG IV (11:33)
[2023-11-21 11:36] LABS: Basophils # 0.1 K/mm3 (0-0.2); Eosinophils # 0.3 K/mm3 (0.0-0.4); Eosinophils % 2.6 % (0.1-12.0); Hematocrit 47.1 % (37.0-47.0); Hemoglobin 14.9 g/dL (12.2-16.2); Lymphocytes # 3.9 K/mm3 (0.7-4.5); Lymphocytes % 34.3 % (10-50); Mean Corpuscular HGB Conc 31.7 g/dL (31.8-35.4); Mean Corpuscular Hemoglobin 29.9 pg (27.0-31.2); Mean Corpuscular Volume 94.3 fl (81-99); Mean Platelet Volume 8.5 fl (7.4-10.4); Monocytes # 0.7 K/mm3 (0.1-1.0); Monocytes % 6.3 % (1.7-9.3); Neutrophils # 6.4 K/mm3 (1.8-7.8); Neutrophils % 55.8 % (37.0-80.0); Platelet Count 369 K/mm3 (142-424); Red Blood Count 4.99 M/mm3 (4.20-5.40); Red Cell Distribution Width 12.6 % (11.5-17.5); White Blood Count 11.5 K/mm3 (4.8-10.8)
[2023-11-21 11:37] LABS: Albumin Level 4.8 g/dl (3.5-5.0); Chloride 109 mmol/L (98-107); Potassium 3.9 mmoL/L (3.5-5.1); Sodium 141 mmol/L (136-145)
[2023-11-21 11:40] LABS: Alanine Aminotransferase 35 U/L (12-78); Albumin/Globulin Ratio 1.4 (1.1-1.8); Alkaline Phosphatase 69 U/L (38-126); Anion Gap 10.9 mEq/L (5-15); Aspartate Amino Transferase 39 U/L (14-36); Bilirubin,Total 0.7 mg/dl (0.2-1.3); Blood Urea Nitrogen 9 mg/dl (7-17); Carbon Dioxide 25 mmol/L (22.0-30.0); Estimated Glomerular Filt Rate 100 ml/min (>60); GFR (African American) 121 ML/MIN (>60); Globulin 3.5 g/dL (1.3-3.2); Lipase 107 U/L (23-300); Total Protein,Serum 8.3 g/dl (6.3-8.2)
[2023-11-21 11:41] LABS: Calcium 8.9 mg/dl (8.4-10.2); Glucose 91 mg/dl (74-100)
[2023-11-21 11:58] LABS: HCG,Quantitative < 2 mIU/ml (0-5.42)
--- NOTE | 2023-11-21 12:02 | PC.NURSE ---
PT TO CT
[2023-11-21] MEDS: SODIUM CHLORIDE 0.9% 10ML SYR (RAD ONLY) 10 ML IV (12:07)
[2023-11-21] MEDS: IOPAMIDOL-370 (76%);100ML BOTTLE 80 ML IV (12:07)
[2023-11-21] MEDS: 0.9 % SODIUM CHLORIDE 50 ML VIAL IV (12:07)
[2023-11-21] MEDS: KETOROLAC 30MG/ML VIAL 15 MG IV (12:20)
--- NOTE | 2023-11-21 12:21 | PC.NURSE ---
Dr. Vieira s/w pt and her mother
--- NOTE | 2023-11-21 12:25 | HMH.EDGENADL ---
Discharge Plan Disposition Patient Disposition: Xfer Short-Term Hosp Chief Complaint: PAIN Prescriptions Prescriptions: New ketorolac 10 mg tablet 10 mg PO Q8H PRN (Reason: pain) 5 Days Qty: 15 0RF ondansetron 4 mg tablet,disintegrating 4 mg PO Q6H PRN (Reason: nausea and vomiting) Qty: 10 0RF No Action triamcinolone acetonide 0.1 % cream 1 applic topical BID PRN (Reason: itching) Qty: 30 0RF diphenhydramine HCl 25 mg capsule 25 mg PO Q6HP PRN (Reason: Itching) Qty: 30 0RF Referrals Follow up/Referrals: Gina Gonzalez APRN [Primary Care Provider] - See instructions Activity Restrictions/Add. Instructions Additional Instructions/Restrictions: Call your family doctor to establish care for this visit to the emergency department and schedule follow-up within 48 hours to ensure improvement. If you have any worsening of your condition or any other concerning signs or symptoms, return to the emergency department or your primary care doctor for further evaluation. Toradol every 8 hours as needed for pain. Zofran as needed for nausea every 6 hours Clinical Impressions Clinical Impression: Ureterolithiasis, Renal colic Print Language Print Language: [place] Discharge ED Provider: Jeovany Vieira General Adult HPI General Chief complaint: PAIN Stated complaint: severe abd pain Time Seen by Provider: 11/21/23 11:18 History of Present Illness HPI narrative: Please note that above description of symptoms, in this electronic medical record under categorization of recalled from ER triage doctor by RN are reflective of an initial nursing assessment, however, is not reflective of my full history and physical exam that was personally taken and clarified. Consequentially, this preceding description of symptoms, which may include the patient's categorized chief complaint in the EMR, do not reflect my personal clinical impression, and the ultimate description of history of present illness and patient stated complaints should be deferred to this section of the note. Unless stated otherwise or congruent with this section of the note, additional signs, symptoms, or incongruence should be interpreted as inaccurate with my clinical impression. Related Data Previous Rx's ?Medication ?Instructions ?Recorded diphenhydramine HCl 25 mg capsule 25 mg PO Q6HP PRN Itching #30 caps 09/22/23 triamcinolone acetonide 0.1 % 1 applic topical BID PRN itching 09/22/23 topical cream #30 grams ketorolac 10 mg tablet 10 mg PO Q8H PRN pain 5 days #15 11/21/23 tabs ondansetron 4 mg disintegrating 4 mg PO Q6H PRN nausea and 11/21/23 tablet vomiting #10 tabs Allergies Allergy/AdvReac Type Severity Reaction Status Date / Time No Known Allergies Allergy Verified 09/29/23 13:07 [facility] Disclaimer: The information contained in this section may have been updated after the patient was seen, as this information can be updated by other users. Medical History Congenital gastroschisis Depression Anxiety Urinary tract infection Asthma Surgical History History of wisdom tooth extraction History of tonsillectomy Social History Smoking Status: Never smoker alcohol intake: never substance use type: denies use current occupational status: employed Travel in the last 8 weeks: None ROS Obtained: Yes All systems reviewed & no additional complaints except as documented Physical Exam General General appearance: alert and in distress (Secondary to pain, walking around the room) Head Head exam: atraumatic and normocephalic Eye Eye exam: Present normal appearance, PERRL and EOMI Neck Neck exam: Present normal inspection, full ROM and trachea midline Respiratory Respiratory exam: Present normal lung sounds bilaterally; Absent respiratory distress, wheezes, stridor, accessory muscle use or prolonged expiratory phase Cardiovascular Cardiovascular exam: Present regular rate, normal rhythm and other (Pulses equal symmetric in upper and lower extremities) Abdominal Exam Abdominal exam: Present soft; Absent distention, tenderness, guarding, rebound, rigidity or pulsatile mass Extremities Exam Extremities exam: Absent edema Back Exam Back exam: Absent CVA tenderness (R) or CVA tenderness (L) Neurological Exam Neurological exam: Present alert, oriented X3 and CN II-XII intact; Absent motor sensory deficit Skin Skin exam: Present warm and dry; Absent diaphoresis or erythema Medical Decision Making Medical Records Medical records reviewed: Yes I reviewed the patient's medical records. Francisco Inquiry Pt receiving controlled substance: No Francisco was queried for this patient: No Vital Signs: 11/21/23 11:14 11/21/23 11:23 11/21/23 11:30 Temperature 98.1 F Temperature Source Oral Pulse Rate 98 H 96 H Pulse Rate [Right] 103 H Respiratory Rate 24 22 20 Blood Pressure 186/126 H 152/117 H Blood Pressure [Right Arm] 145/100 H Blood Pressure Mean 140 130 Blood Pressure Mean [Right Arm] 115 Blood Pressure Source [Right Arm] Automatic Cuff 02 Sat by Pulse Oximetry 100 98 97 Oxygen Delivery Method Room Air Room Air Room Air 11/21/23 11:45 11/21/23 12:15 11/21/23 12:30 Temperature Temperature Source Pulse Rate 92 H 92 H 82 Pulse Rate [Right] Respiratory Rate 18 16 18 Blood Pressure 145/105 H 134/90 114/82 Blood Pressure [Right Arm] Blood Pressure Mean Blood Pressure Mean [Right Arm] Blood Pressure Source [Right Arm] 02 Sat by Pulse Oximetry 97 97 94 L Oxygen Delivery Method Room Air Room Air Room Air 11/21/23 12:45 11/21/23 13:00 11/21/23 14:15 Temperature Temperature Source Pulse Rate 80 69 87 Pulse Rate [Right] Respiratory Rate 18 16 18 Blood Pressure 114/84 110/78 120/90 Blood Pressure [Right Arm] Blood Pressure Mean Blood Pressure Mean [Right Arm] Blood Pressure Source [Right Arm] 02 Sat by Pulse Oximetry 96 95 100 Oxygen Delivery Method Room Air Room Air Room Air Lab Data Lab Results 11/21/23 11:22: WBC 11.5 H, RBC 4.99, Hgb 14.9, Hct 47.1 H, MCV 94.3, MCH 29.9, MCHC 31.7 L, RDW 12.6, Plt Count 369, MPV 8.5, Neut % (Auto) 55.8, Lymph % (Auto) 34.3, Hayes % (Auto) 6.3, Eos % (Auto) 2.6, Baso % (Auto) 1.0, Neut # (Auto) 6.4, Lymph # (Auto) 3.9, Hayes # (Auto) 0.7, Eos # (Auto) 0.3, Baso # (Auto) 0.1, Sodium 141, Potassium 3.9, Chloride 109 H, Carbon Dioxide 25, Anion Gap 10.9, BUN 9, Creatinine 0.70, Estimated GFR 100, Est GFR ( Amer) 121, Glucose 91, Lactate 1.0, Calcium 8.9, Total Bilirubin 0.7, AST 39 H, ALT 35, Alkaline Phosphatase 69, Total Protein 8.3 H, Albumin 4.8, Globulin 3.5 H, Albumin/Globulin Ratio 1.4, Lipase 107, HCG, Quant < 2 11/21/23 13:00: Urine Color Yellow, Urine Appearance Clear, Urine pH 7.0, Ur Specific [place] 1.010, Urine Protein Negative, Urine Glucose (UA) Negative, Urine Ketones Negative, Urine Blood 3+ A, Urine Nitrate Negative, Urine Bilirubin Negative, Urine Urobilinogen 0.2, Ur Leukocyte Esterase Negative, Urine RBC 20-50, Urine WBC None, Ur Squamous Epith Cells Occasional, Urine Bacteria Trace 11/21/23 11:22 11/21/23 11:22 Orders (Tests/Meds): ED MEDICATIONS Discontinued Medications Generic Name Dose Route Start Last Admin Trade Name Ursula PRN Reason Stop Dose Admin Acetaminophen 1,000 mg 11/21/23 11:27 11/21/23 11:33 Acetaminophen 1,000mg/100ml Vial IV 11/21/23 11:28 1,000 mg ONCE ONE Administration Hydromorphone HCl 1 mg 11/21/23 11:27 11/21/23 11:33 Hydromorphone 2mg/Ml Syringe IV 11/21/23 11:28 1 mg ONCE ONE Administration Iopamidol 80 ml 11/21/23 12:06 11/21/23 12:07 Iopamidol-370 (76%);100ml Bottle IV 11/21/23 12:07 80 ml ONCE ONE Administration Ketorolac Tromethamine 15 mg 11/21/23 12:12 11/21/23 12:20 Ketorolac 30mg/Ml Vial IV 11/21/23 12:13 15 mg ONCE ONE Administration Ondansetron HCl 4 mg 11/21/23 11:27 11/21/23 11:33 Ondansetron 4mg/2ml Vial IV 11/21/23 11:28 4 mg ONCE ONE Administration Sodium Chloride 10 ml 11/21/23 12:11/21/23 12:07 Sodium Chloride 0.9% 10ml Syr (Rad Only) IV 11/21/23 12:07 10 ml ONCE ONE Administration Sodium Chloride 50 ml 11/21/23 12:11/21/23 12:07 0.9 % Sodium Chloride 50 Ml Vial IV 11/21/23 12:07 50 ml ONCE ONE Administration ORDERS Category Date Time Status CT angio abdomen pelvis Stat Cat Scan 11/21/23 11:26 Completed CBC w/Auto Diff [Complete Blood Count Auto Diff] Stat Lab 11/21/23 11:22 Completed CMP [Comprehensive Metabolic Panel] Stat Lab 11/21/23 11:22 Completed HCG,Quantitative Stat Lab 11/21/23 11:22 Completed Lactic Acid Stat Lab 11/21/23 11:22 Completed Lipase Stat Lab 11/21/23 11:22 Completed UA [Urinalysis and Microscopic] Stat Lab 11/21/23 13:00 Completed Medical Decision Narrative: 28-year-old female history of gastroschisis and malrotation status postrepair presenting with acute onset abdominal pain/flank pain. Patient states that about 20 minutes prior to arrival, she was woken up from sleep with severe left flank pain. Radiates down toward her groin. No fevers or chills, nausea or vomiting. 10 out of 10, sharp, has never had this pain in the past. No chance of , urinary symptoms, or bowel symptoms. History was obtained via conversation with patient, family. On arrival, patient hemodynamically stable, alert, oriented x4, appropriate, GCS 15, moving all extremities spontaneously, pupils equal and reactive to light. Full physical exam performed and significant for uncomfortable appearing female in mild distress secondary to pain. Walking around the room, tearful, holding her left side. No flank tenderness to percussion, and no abdominal tenderness to deep palpation. No overlying skin changes. Differential includes nephrolithiasis, pyelonephritis, UTI, pancreatitis, mesenteric ischemia, other vascular abnormality, appendicitis, among others. Patient placed on continuous cardiac monitoring and continuous pulse ox with initial blood pressure 186/120, heart rate 98, saturation 98% on room air. Patient was given 1 mg Dilaudid, 4 mg Zofran, fluids, acetaminophen 1 g. After negative hCG, Toradol administered 15 mg. For symptomatic management and correction of underlying abnormalities. Workup independently interpreted and significant for nonactionable chemistry with normal kidney function. Mild leukocytosis 11.5, but nonactionable overall. Patient's LFTs normal. hCG negative. Urinalysis with hematuria. On independent interpretation of imaging, patient has 4 mm left mid ureter stone with mild hydroureter. See radiology read for full review of final results. On reevaluation, patient sleeping, still feeling nauseated secondary to waves of pain, this is when Toradol was given. Given patient presentation, workup, history, this most likely represents nephrolithiasis with renal colic. Less likely appendicitis. Although I do not think is appendicitis, radiology read concern for it. I feel low likelihood given negative abdominal exam, but out of abundance of caution, would like to have patient admitted for serial abdominal exams. Initial dose of Unasyn was given. [facility] contacted and case was discussed at length after speaking to the hospitalist here at [facility]. Hospitalist. H&H 7 did not feel comfortable admitting urologic patient given no urology here at the hospital, [facility] graciously excepted for urology and surgical evaluations. Because patient high risk for clinical decompensation if discharged, deemed appropriate for transfer and inpatient admission. Results were relayed to patient who voiced understanding and patient was agreeable to transfer, inpatient admission, and management. Patient was graciously accepted and transferred to [place] for further definitive management. [employer] disclaimer Much of this encounter note is an electronic carton lettering machine operator spoken language to printed text. Electronic carton lettering machine operator of the spoken language may permit errors. Although I have reviewed the note, some errors may still exist. Critical Care Critical Care Time Critical Care Time: No
[2023-11-21 13:19] LABS: Microscopic, Urine URINE MICROSCOPIC (MICROSCOPIC)
[2023-11-21 13:21] LABS: Appearance,Urine CLEAR (Clear); Bilirubin,Urine Negative (Negative); Blood, Urine 3+ (Negative); Color,Urine YELLOW (Yellow); Glucose,Urine (UA) Negative (Negative); Ketones,Urine Negative (Negative); Leukocyte Esterase,Urine Negative (Negative); Nitrate,Urine Negative (Negative); Protein,Urine Negative (Negative); Urobilinogen,Urine 0.2 EU/dl (0.2)
[2023-11-21 13:45] LABS: Bacteria,Urine Trace /lpf; RBC,Urine 20-50 #/hpf (0-3); Squamous Epithelial Cell,Urine Occasional #/hpf (0-5)
--- NOTE | 2023-11-21 14:00 | PC.NURSE ---
Per Dr Vieira request called [place] with request to transfer. Awaiting a call back. CR
--- NOTE | 2023-11-21 14:54 | PC.NURSE ---
DR BURNETT AT BEDSIDE TO UPDATE PT AND FAMILY
[2023-11-21] MEDS: AMPICILLIN SODIUM/SULBACTAM 3 GM in 0.9 % SODIUM CHLORIDE 100 ML IV (15:28)
== END 2023-11-21 16:26 | disposition short-term general hospital (02) ==
PROVIDERS: Emergency Provider Emergency Medicine; PCP Nurse Practitioner Family
DX: N13.2 Hydronephrosis with renal and ureteral calculous obstruction (principal); R10.32 Left lower quadrant pain
CPT/HCPCS: 74174; 80053; 81001; 83605; 83690; 84702; 85025; 96374; 96375; 99285; J0131; J0295; J1170; J1885; J2405; Q9967